=== PATIENT | male | born 1970 | race Caucasian/White ===

== ENCOUNTER 2020-09-25 07:26 | Day surgery (SDC) | payer OTHER, SELFPAY ==
[2020-09-20 12:18] VITALS: BMI 28.7
[2020-09-25 08:34] VITALS: BP 149/96; PULSE 72; RESP 16; TEMP 36.4; O2SAT 96
--- NOTE | 2020-09-25 08:38 | P.CONAN_ITS ---
[facility] Past Medical History Medical History Depression Social History Social History Advance Directives: No Advance Directives Information Provided: No Advance Directives on File: No Meds Allergies Allergy/AdvReac Type Severity Reaction Status Date / Time No Known Allergies Allergy Verified 09/25/20 07:25 Home Medications Medication Instructions Recorded Confirmed Type paroxetine HCl 1 tab PO DAILY 09/20/20 09/20/20 History Exam Exam Date and Time: September 25, 2020 0838 Height,Weight and Vital Signs: Height 5 ft 10 in Weight 90.718 kg Airway Mallampati Class: II TM Dist: >3cm Neck ROM: Full Loose/Missing/Broken Teeth: No Heart: rrr+[id number] Lungs: cta b/l Assessment and Plan Assessment Anesthesia Assessment: Anesthesia Plan Discussed and Chart Reviewed Final Anesthetic Review NPO: Yes ASA Class: II Final Preanesthetic Review: No Changes in Pt Med Stat, Meds/Allgs Chart Reviewed, Consent Obtained/Reviewed and Anes Risks/Benef Reviewed Patient Risk: Low Procedure Risk: Low Assessment/Block/Sedation in SS: Assess/Block/Sedation-SS Anesthetic Plan Anesthetic Plan: MAC: Disposition: Standard PACU
[2020-09-25] MEDS: Lactated Ringers 1,000 ML 50 ML IVCONT (08:42)
[2020-09-25 09:27] VITALS: BP 148/103; PULSE 79; RESP 12; TEMP 36.7; O2SAT 97
--- NOTE | 2020-09-25 09:31 | MHC.SHP ---
Pre-Procedural Eval Section A The patient is an INPATIENT: No Changes since office visit: No Cold of Flu in the past 2 weeks, No New Medical Problems, No Changes in Medication and No Patient answered all questions The History & Physical has been completed within 30 days and I have reviewed it.: Yes Section B Chief Complaint: Screening Allergies: Allergies Allergy/AdvReac Type Severity Reaction Status Date / Time No Known Allergies Allergy Verified 09/25/20 07:25 Plan Patient has been examined and remains a candidate for the planned procedure
--- NOTE | 2020-09-25 09:36 | PM.OP ---
Brief Operative Note Date of Service: 09/25/20 Pre-op diagnosis: screening Post-op diagnosis: other (colon polyps) Procedure: colonoscopy Surgeon: Humberto Boggs Anesthesia: MAC Estimated blood loss (mL): 0 Pathology: other (polyps 78,70 x2,60,45 cm) Condition: stable Disposition: PACU
--- NOTE | 2020-09-25 09:39 | HO.POSTANES ---
Post Anesthesia Evaluation Post Anesthesia Evaluation Vital Signs: Vital Signs Temp Pulse Resp BP Pulse Ox 09/25/20 09:27 98.0 F 79 12 148/103 H 97 09/25/20 08:34 97.6 F 72 16 149/96 H 96 Anesthesia: Monitored Mental Status: Awake Pain Control: Satisfactory Nausea/Vomiting: None Hydration: Adequate Anesthesia-Related Issues: No Anes. Related Issues
[2020-09-25 09:42] VITALS: BP 148/103; PULSE 79; RESP 16; TEMP 36.7; O2SAT 97
--- NOTE | 2020-09-25 09:50 | OP_ITS ---
SURGEON: Humberto Boggs MD INDICATIONS: Colon cancer screening. PREOPERATIVE DIAGNOSIS: POSTOPERATIVE DIAGNOSIS: PROCEDURE PERFORMED: Colonoscopy to the terminal ileum with snare polypectomy. ESTIMATED BLOOD LOSS: COMPLICATIONS: ANESTHESIA: ASSISTANTS: SPECIMENS: MEDICATIONS: Monitored anesthesia care. DESCRIPTION OF PROCEDURE: History and physical performed. The risks and benefits of the procedure were explained to the patient. Informed consent was obtained. The patient was placed in the left lateral decubitus position. A digital rectal exam was performed and was found to be normal. The Olympus pediatric video colonoscope was introduced into the rectum and advanced to the cecum without difficulty. The cecum was identified by transillumination, palpation, and identification of ileocecal valve. Examination was performed and the scope was removed. He tolerated the procedure well and was taken to recovery area in stable condition. FINDINGS: The terminal ileum was normal. Multiple colonic polyps were present and removed with a snare. At 85 cm, was a 10 mm polyp. At 70 cm, were two less than 10 mm polyps. At 60 cm, was a single polyp measuring less than 10 mm and at 45 cm, was another polyp measuring less than 10 mm. All polyps were snared and recovered via suction except the first polyp, which required removal and reinsertion of the colonoscope. Retroflexed examination showed small internal hemorrhoids. The quality of the prep was good. IMPRESSION: Colon polyp. RECOMMENDATION: Follow up the biopsy results. MD ALLIE Pascual/MARCEL / [id number] cc: Dr. Dawson [facility] HOSPITALMohini
--- NOTE | 2020-10-02 15:32 | OP_ITS ---
SURGEON: Humberto Boggs MD INDICATIONS: Colon cancer screening. PREOPERATIVE DIAGNOSIS: POSTOPERATIVE DIAGNOSIS: PROCEDURE PERFORMED: Colonoscopy to the terminal ileum. ESTIMATED BLOOD LOSS: COMPLICATIONS: ANESTHESIA: ASSISTANTS: SPECIMENS: MEDICATIONS: Monitored anesthesia care. DESCRIPTION OF PROCEDURE: History and physical performed. The risks and benefits of the procedure were explained to the patient. Informed consent was obtained. The patient was placed in the left lateral decubitus position. A digital rectal exam was performed and was found to be normal. The Olympus pediatric video colonoscope was introduced into the rectum and advanced to the cecum without difficulty. The cecum was identified by transillumination, palpation, and identification of ileocecal valve. Examination was performed and the scope was removed. He tolerated the procedure well and was taken to recovery area in stable condition. FINDINGS: The terminal ileum was examined and appeared normal. The visualized colonic mucosa was within normal limits without evidence of masses or ulcers. The quality of the prep was good. Multiple colonic polyps were present. These were removed with a snare. The largest was located at 85 cm and measured approximately 10 mm. Other polyps under 10 mm were located at 70 cm x2, 60 x1, and 45 cm x1. Retroflexed examination was normal. IMPRESSION: Colon polyps. RECOMMENDATION: Follow up the biopsy results. MD ALLIE Pascual/MARCEL / [id number]
== END 2020-09-25 10:24 | disposition home or self-care (01) ==
PROVIDERS: PCP Internal Medicine; Visit Provider Internal Medicine Gastroenterology
PROC: 0DJD8ZZ Inspection of Lower Intestinal Tract, Via Natural or Artificial Opening Endoscopic (ICD-10-PCS; CPT 45378; principal; 2020-09-25 08:50)
DX: Z12.11 Encounter for screening for malignant neoplasm of colon (principal); K64.8 Other hemorrhoids; D12.3 Benign neoplasm of transverse colon; D12.4 Benign neoplasm of descending colon; D12.5 Benign neoplasm of sigmoid colon; F32.9 Major depressive disorder, single episode, unspecified; Z79.899 Other long term (current) drug therapy
CPT/HCPCS: 45385; 88305

== ENCOUNTER 2020-11-06 08:40 | Outpatient (REF) | payer SELFPAY ==
[2020-11-06 11:01] LABS: SARS COV2 IgG Positive (Negative)
== END 2020-11-06 08:41 | disposition home or self-care (01) ==
LOC: HO.LNC 08:40
PROVIDERS: Visit Provider Pathology Anatomic Pathology & Clinical Pathology
DX: Z00.00 Encounter for general adult medical examination without abnormal findings (principal); Z20.828 Contact with and (suspected) exposure to other viral communicable diseases
CPT/HCPCS: 86769

== ENCOUNTER 2021-07-18 07:17 | Outpatient (REF) | payer OTHER, SELFPAY ==
[2021-07-18 07:37] LABS: MANUAL DIFF FLAG NO
[2021-07-18 07:39] LABS: Basophils Percent Auto 1.1 % (0-2); Eosinophils Absolute Auto 0.2 X10*3/uL (0.0-0.4); Eosinophils Percent Auto 5.8 % (0-4); Hematocrit 43.4 % (42-52); Hemoglobin 14.9 g/dl (14.0-18.0); Imm Gran Abs Auto 0.04 X10*3/uL (0.00-0.03); Imm Gran Pct Auto 1.1 % (0.0-0.4); Lymphocytes Absolute Auto 1.3 X10*3/uL (1.2-4.9); Lymphocytes Percent Auto 34.2 % (20-40); Mean Corpuscular HGB Conc 34.3 g/dl (31.0-36.0); Mean Corpuscular Volume 81.6 fL (80-98); Monocytes Absolute Auto 0.4 X10*3/uL (0.1-1.2); Monocytes Percent Auto 10.1 % (2-11); Neutrophils Absolute Auto 1.8 X10*3/uL (2.0-8.3); Neutrophils Percent Auto 47.7 % (45-73); Platelet Count 210 X10*3/uL (160-400); Red Blood Count 5.32 X10*6/uL (4.60-5.80); Red Cell Distribution Width 12.9 % (11.0-16.0); White Blood Count 3.8 X10*3/uL (4.8-10.8)
[2021-07-18 08:07] LABS: Alanine Aminotransferase 24 U/L (0-40); Albumin Level 4.3 g/dL (3.5-5.0); Alkaline Phosphatase 46 U/L (39-117); Anion Gap 11 (12-20); Aspartate Amino Transferase 21 U/L (5-37); Bilirubin Total 0.5 mg/dL (0.0-1.0); Blood Urea Nitrogen 13 mg/dL (9-16); Calcium 9.2 mg/dL (8.4-10.2); Carbon Dioxide 25 mmol/L (22-29); Chloride 108 mmol/L (96-108); Cholesterol 229 mg/dL; Estimated Glomerular Filt Rate > 60; Glucose Fasting 113 mg/dL (60-99); HDL Cholesterol 46 mg/dL; LDL Cholesterol Calculated 159 mg/dl; Potassium 4.5 mmol/L (3.3-5.1); Sodium 139 mmol/L (135-145); Total Protein 6.7 g/dL (6.5-8.0); Triglycerides 123 mg/dL
[2021-07-18 08:28] LABS: Thyroid Stimulating Hormone 2.03 uIU/mL (0.32-4.0)
== END 2021-07-18 07:18 | disposition home or self-care (01) ==
LOC: HO.LAB 07:17
PROVIDERS: PCP Internal Medicine; Visit Provider Internal Medicine
DX: Z00.00 Encounter for general adult medical examination without abnormal findings (principal); E11.9 Type 2 diabetes mellitus without complications; E03.9 Hypothyroidism, unspecified
CPT/HCPCS: 36415; 80053; 80061; 84443; 85025

== ENCOUNTER 2022-07-09 09:31 | Outpatient (REF) | payer OTHER, SELFPAY ==
[2022-07-09 09:41] LABS: MANUAL DIFF FLAG NO
[2022-07-09 10:03] LABS: Basophils Absolute Auto 0.1 X10*3/uL (0.0-0.2); Basophils Percent Auto 1.4 % (0-2); Eosinophils Absolute Auto 0.2 X10*3/uL (0.0-0.4); Eosinophils Percent Auto 4.4 % (0-4); Hematocrit 43.9 % (42.0-52.0); Hemoglobin 15.2 g/dl (14.0-18.0); Imm Gran Abs Auto 0.04 X10*3/uL (0.00-0.03); Imm Gran Pct Auto 0.9 % (0.0-0.4); Lymphocytes Absolute Auto 1.5 X10*3/uL (1.2-4.9); Lymphocytes Percent Auto 33.6 % (20-40); Mean Corpuscular HGB Conc 34.6 g/dl (31.0-36.0); Mean Corpuscular Volume 80.8 fL (80.0-98.0); Mean Platelet Volume 9.1 fL (9.4-12.4); Monocytes Absolute Auto 0.4 X10*3/uL (0.1-1.2); Monocytes Percent Auto 9.9 % (2-11); Neutrophils Absolute Auto 2.2 x10*3/uL (2.0-8.3); Neutrophils Percent Auto 49.8 % (45-73); Platelet Count 223 X10*3/uL (160-400); Red Blood Count 5.43 X10*6/uL (4.60-5.80); Red Cell Distribution Width 12.9 % (11.0-16.0); White Blood Count 4.3 X10*3/uL (4.8-10.8)
[2022-07-09 10:32] LABS: Alanine Aminotransferase 39 U/L (0-40); Albumin Level 4.4 g/dL (3.5-5.0); Alkaline Phosphatase 51 U/L (39-117); Anion Gap 13 (12-20); Aspartate Amino Transferase 22 U/L (5-37); Bilirubin Total 0.6 mg/dL (0.0-1.0); Blood Urea Nitrogen 18 mg/dL (9-16); Carbon Dioxide 26 mmol/L (22-29); Chloride 107 mmol/L (96-108); Cholesterol 252 mg/dL; Estimated Glomerular Filt Rate 57; Glucose Fasting 109 mg/dL (60-99); HDL Cholesterol 45 mg/dL; LDL Cholesterol Calculated 175 mg/dl; Potassium 4.7 mmol/L (3.3-5.1); Sodium 141 mmol/L (135-145); Total Protein 7.1 g/dL (6.5-8.0); Triglycerides 162 mg/dL
[2022-07-09 10:56] LABS: Thyroid Stimulating Hormone 1.44 uIU/mL (0.32-4.0)
== END 2022-07-09 09:32 | disposition home or self-care (01) ==
LOC: HO.LAB 09:31
PROVIDERS: PCP Internal Medicine; Visit Provider Internal Medicine
DX: Z13.0 Encounter for screening for diseases of the blood and blood-forming organs and certain disorders involving the immune mechanism (principal); E03.9 Hypothyroidism, unspecified; E78.5 Hyperlipidemia, unspecified; I10 Essential (primary) hypertension
CPT/HCPCS: 36415; 80053; 80061; 84443; 85025

== ENCOUNTER 2023-07-22 12:47 | Outpatient (AMB) | payer OTHER, SELFPAY ==
[2023-07-22 12:51] VITALS: BP 136/60; PULSE 91; O2SAT 96; BMI 29.0
--- NOTE | 2023-07-22 12:51 | MHC.PC.OV ---
Vital Signs 07/22/23 12:51 Height 5 ft 11 in Weight 208 lb BMI 29.0 BP 136/60 Blood Pressure Location Lt brachial Position Sitting Pulse 91 Pulse Source Pulse Oximeter Pulse Oximetry (%) 96 Oxygen Delivery Method Room Air Intake Visit Reasons: Annual Exam Puncher And Fastener Required: No Investor Relations Specialist: Not Required per policy Accompanied by: Self / Same As Patient Allergies No Known Allergies Allergy (Verified 07/22/23 12:51) Medication List - Last Reconciled 07/22/23 by Shubham Dawson MD paroxetine HCl 20 mg PO DAILY Tobacco use date assessed: 07/09/22 Dental Screening Dental Screen Date: 07/22/23 Did you have a dental visit in the last 12 months?: No Did you have a dental problem in the last 6 months where you did not have access to dental care?: No Was dental information given to patient?: Patient has dentist HPI Annual Exam HPI Details panic disorder [facility] Medical History Panic disorder Depression Surgical History History of colonoscopy Family History Mother No problems noted. Father No problems noted. Social History Housing: House Patient Tobacco Use Status: Never used Tobacco e-Cigarette/Vaping Use: Never Used Second Hand Smoke Exposure: No service: No Current occupational status: employed Cognitive needs: No Hearing needs: No Vision needs: No Questionnaire PHQ-9 Over the last 2 weeks, how often have you been bothered by any of the following problems? 1. Little interest or pleasure in doing things: not at all 2. Feeling down, depressed, or hopeless: not at all 3. Trouble falling or staying asleep, or sleeping too much: not at all 4. Feeling tired or having little energy: not at all 5. Poor appetite or overeating: not at all 6. Feeling bad about yourself - or that you are a failure or have let yourself or your family down: not at all 7. Trouble concentrating on things, such as reading the newspaper or watching television: not at all 8. Moving or speaking so slowly that other people could have noticed. Or the opposite - being so fidgety or restless that you have been moving around a lot more than usual: not at all 9. Thoughts that you would be better off or of hurting yourself in some way: not at all Total score: 0 Depression Screening Interpretation: Negative 28819 - PHQ-9 Billing: Yes Source: Developed by Drs. Sebastián Drake, Kimberlee Denton, Placido Moses and colleagues, with an educational christopher from [employer]. Thrive Questionnaire Date Thrive assessed: 07/22/23 I am a: Patient What is your living situation today?: I have a steady place to live Within the past 12 months, did the food you bought not last and you didn't have the money to get more?: Never true Within the past 12 months, did you worry whether your food would run out before you got money to buy more?: Never true Do you have trouble paying for medicines?: No Do you have trouble getting transportation to medical appointments?: No Do you have trouble paying your heating and electricity bill?: No Do you have trouble taking care of your child, family member or friend?: No Do you have trouble with day-to-day activities such as bathing, preparing meals, shopping, managing finances, etc.?: No Are you currently unemployed and looking for a job?: No Are you interested in more education?: No Please select the resources that you would like help with: None AUDIT C Alcohol Use Questionnaire (AUDIT-C) 1. How often do you have a drink containing alcohol?: 2-3 times a week 2. How many drinks containing alcohol do you have on a typical day when you are drinking?: 3 or 4 3. How often do you have six or more drinks on one occasion?: Never Total Score: 4 Score Reviewed/Action Taken: Yes ANNABELLE-7 AMB Questionnaire ANNABELLE-7 Date ANNABELLE - 7 assessed: 07/22/23 Feeling nervous, anxious, or on edge: 0 = Not at all Not being able to stop or control worryin = Not at all Worrying too much about different things: 0 = Not at all Trouble relaxin = Not at all Being so restless that it is hard to sit still: 0 = Not at all Becoming easily annoyed or irritable: 0 = Not at all Feeling afraid as if something awful might happen: 0 = Not at all Total ANNABELLE-7 score (0-4 normal; 5-9 mild; 10-14 moderate; 15-21 severe): 0 Source: Developed by Drs. Sebastián Drake, Kimberlee Denton, Placido Moses and colleagues, with an educational christopher from [employer]. ANNABELLE-7 Assessment Billing ANNABELLE-7 Assessment Tool: ANNABELLE-7 Assessment 44308 Review of Systems Const Denies chills, Denies fatigue, Denies headache(s) and Denies weight loss Eyes Denies change in vision, Denies diplopia and Denies eye pain ENT Denies vertigo, Denies dizziness, Denies headache(s) and Denies nasal discharge Card Denies chest pain, Denies rapid heart rate and Denies dyspnea on exertion Resp Denies chest congestion, Denies cough, Denies pain with cough and Denies dyspnea on exertion GI Denies abdominal pain, Denies hematochezia and Denies change in bowel habits Musc Denies myalgias, Denies arthralgias and Denies joint swelling Skin/Breast Denies lesions and Denies unusual bruising Neuro Denies vertigo, Denies dizziness, Denies headache(s) and Denies focal weakness Endo Denies fatigue Physical exam (Primary Care) Vital Signs: Last Vital Signs Pulse 91 07/22/23 12:51 BP 136/60 07/22/23 12:51 Pulse Ox 96 07/22/23 12:51 Oxygen Delivery Method Room Air 07/22/23 12:51 BMI result Body Mass Index 29.0 Tobacco/Smoking Status: Tobacco use Status Tobacco use date assessed 07/09/22 07/22/23 12:56 Patient Tobacco Use Status Never used Tobacco 07/22/23 12:56 e-Cigarette/Vaping Use Never Used 07/22/23 12:56 PHQ-9: PHQ-9 Score PHQ-9: Total score 0 07/22/23 12:56 Depression Screening Interpretation: Negative Thrive Assessment: Date of Thrive Assessment Date Thrive assessed 07/22/23 07/22/23 12:56 Const General: cooperative, healthy appearing and no acute distress Orientation/consciousness: oriented to person, oriented to place and oriented to time HENMT Head: Yes normal to inspection, Yes normocephalic and Yes atraumatic Mouth: Normal oral and palatal mucosa present and tongue normal Throat: Yes posterior oropharynx normal and Yes uvula midline Eyes General: appearance normal, both eyes and all related structures Neck Neck: Yes normal visual inspection, Yes full ROM and Yes no lymphadenopathy Thyroid: Thyroid normal Carotids: normal carotid upstroke Chest Chest palpation & inspection: normal inspection of the chest Resp Effort & Inspection: normal respiratory effort and able to speak in complete sentences Auscultation: clear to auscultation bilaterally Cardio Jugular venous distension: no JVD Palpation: normal PMI Rate: regular rate Rhythm: regular rhythm Heart sounds: S1 normal heart sound present and S2 normal heart sound present GI Inspection: Yes normal to inspection Palpation (GI): Soft to palpation and No hepatosplenomegaly present Auscultation: normal bowel sounds General: Yes no CVA tenderness Back/Spine/Pelvis Back: no CVA tenderness Skin General skin exam: no rashes or lesions noted Neuro General: oriented to person, oriented to place and oriented to time Extrem General: Yes normal to inspection and Yes full ROM Assessment and Plan Assessment & Plan (1) Physical exam: Code(s): Z00.00 - Encounter for general adult medical examination without abnormal findings (2) Panic disorder: Code(s): F41.0 - Panic disorder [episodic paroxysmal anxiety] Orders: Orders Lipid Panel Today E78.5 - Hyperlipidemia, unspecified Complete Blood Count Auto Diff Today D64.9 - Anemia, unspecified Thyroid Stimulating Hormone Today E03.9 - Hypothyroidism, unspecified Comprehensive Raven. Panel Fast Today N28.9 - Disorder of kidney and ureter, unspecified Referrals Dermatology Referral R22.9 - Localized swelling, mass and lump, unspecified Coding Level of Care Code Est Pt Prev Care 40-64y(82069) Diagnoses Physical exam Z00.00 Panic disorder F41.0 Additional Codes ANNABELLE-7 Assessment Billing - ANNABELLE-7 Assessment Tool: ANNABELLE-7 Assessment 99932 ([id number])
== END 2023-07-22 13:16 | disposition home or self-care (01) ==
PROVIDERS: PCP Internal Medicine; Visit Provider Internal Medicine
DX: Z00.00 Encounter for general adult medical examination without abnormal findings (principal); F41.0 Panic disorder [episodic paroxysmal anxiety]
CPT/HCPCS: 99396

== ENCOUNTER 2023-07-23 06:54 | Outpatient (REF) | payer OTHER, SELFPAY ==
[2023-07-23 07:08] LABS: MANUAL DIFF FLAG NO
[2023-07-23 07:44] LABS: Basophils Absolute Auto 0.1 X10*3/uL (0.0-0.2); Basophils Percent Auto 1.3 % (0-2); Eosinophils Absolute Auto 0.3 X10*3/uL (0.0-0.4); Eosinophils Percent Auto 5.9 % (0-4); Hemoglobin 14.9 g/dl (14.0-18.0); Imm Gran Abs Auto 0.07 X10*3/uL (0.00-0.03); Imm Gran Pct Auto 1.5 % (0.0-0.4); Lymphocytes Absolute Auto 1.4 X10*3/uL (1.2-4.9); Lymphocytes Percent Auto 29.3 % (20-40); Mean Corpuscular HGB Conc 33.9 g/dl (31.0-36.0); Mean Corpuscular Hemoglobin 28.3 pg (27.0-33.0); Mean Corpuscular Volume 83.7 fL (80.0-98.0); Mean Platelet Volume 9.5 fL (9.4-12.4); Monocytes Absolute Auto 0.5 X10*3/uL (0.1-1.2); Monocytes Percent Auto 10.1 % (2-11); Neutrophils Absolute Auto 2.5 x10*3/uL (2.0-8.3); Neutrophils Percent Auto 51.9 % (45-73); Platelet Count 216 X10*3/uL (160-400); Red Blood Count 5.26 X10*6/uL (4.60-5.80); White Blood Count 4.8 X10*3/uL (4.8-10.8)
[2023-07-23 08:08] LABS: Alanine Aminotransferase 45 U/L (0-40); Albumin Level 4.4 g/dL (3.5-5.0); Alkaline Phosphatase 44 U/L (39-117); Anion Gap 12 (12-20); Aspartate Amino Transferase 29 U/L (5-37); Bilirubin Total 0.7 mg/dL (0.0-1.0); Blood Urea Nitrogen 17 mg/dL (9-16); Calcium 9.1 mg/dL (8.4-10.2); Carbon Dioxide 24 mmol/L (22-29); Chloride 110 mmol/L (96-108); Cholesterol 236 mg/dL (<200); Estimated Glomerular Filt Rate > 60; Glucose Fasting 115 mg/dL (60-99); HDL Cholesterol 39 mg/dL (>40); LDL Cholesterol Calculated 159 mg/dL (<100); Potassium 3.9 mmol/L (3.3-5.1); Sodium 142 mmol/L (135-145); Total Protein 7.2 g/dL (6.5-8.0); Triglycerides 193 mg/dL (<150)
[2023-07-23 08:23] LABS: Thyroid Stimulating Hormone 1.56 uIU/mL (0.32-4.0)
== END 2023-07-23 06:55 | disposition home or self-care (01) ==
LOC: HO.LAB 06:54
PROVIDERS: PCP Internal Medicine; Visit Provider Internal Medicine
DX: D64.9 Anemia, unspecified (principal); E78.5 Hyperlipidemia, unspecified; E03.9 Hypothyroidism, unspecified; N28.9 Disorder of kidney and ureter, unspecified
CPT/HCPCS: 36415; 80053; 80061; 84443; 85025

== ENCOUNTER 2024-01-27 11:43 | Day surgery (SDC) | payer OTHER, SELFPAY ==
[2024-01-25 15:04] VITALS: BMI 30.3
--- NOTE | 2024-01-27 12:18 | HO.ANESPROP2 ---
[facility] Active Problems Active Problems: All Active Problems (Updated 07/09/22 @ 09:26 by Shubham Dawson MD) Physical exam (Acute) Panic disorder (Acute) Past Medical History Medical History Panic disorder Depression Family History Family History Mother No problems noted. Father No problems noted. Family history of problems with anesthesia: No Surgical History Surgical History (Updated 01/25/24 @ 15:04 by Brenda Romero RN) History of colonoscopy History of Problems with Anesthesia: No Social History Social History (Updated 01/25/24 @ 15:04 by Brenda Romero RN) Housing: House Patient Tobacco Use Status: Never used Tobacco e-Cigarette/Vaping Use: Never Used Second Hand Smoke Exposure: No Advance Directives: No Advance Directives Information Provided: Yes service: No Current occupational status: employed Cognitive needs: No Hearing needs: No Vision needs: No Meds Allergies Allergy/AdvReac Type Severity Reaction Status Date / Time No Known Allergies Allergy Verified 07/22/23 12:51 Exam Height,Weight and Vital Signs: Height 5 ft 10 in Weight 95.708 kg Airway Mallampati Class: II TM Dist: >3cm Neck ROM: Full Assessment and Plan Assessment Anesthesia Assessment: Anesthesia Plan Discussed and Chart Reviewed Final Anesthetic Review Family History of Problems with Anesthesia: No History of Problems with Anesthesia: No NPO: Yes ASA Class: II Final Preanesthetic Review: No Changes in Pt Med Stat, Meds/Allgs Chart Reviewed, Consent Obtained/Reviewed and Anes Risks/Benef Reviewed Patient Risk: Low Procedure Risk: Low Anesthetic Plan Anesthetic Plan: TIVA Disposition: Standard PACU
[2024-01-27 12:22] VITALS: BP 159/113; PULSE 74; RESP 18; TEMP 36.1; O2SAT 97
--- NOTE | 2024-01-27 12:56 | P.HPSUR_ITS ---
Pre-Procedural Eval Section A - 24 Hr Update-Section A only Date of Service: 01/27/24 Section B - Complete if H&P > 30 days Chief Complaint: Encounter for screening for malignant neoplasm of Details of Present Illness: see H&P no changes Relevant Family History (Specify if Yes): No Relevant Social History: None Present Medications: see Short Stay Collaborative assessment Medical History: No relevant PMH History of Previous Operations: No relevant previous surgery Allergies: Allergies Allergy/AdvReac Type Severity Reaction Status Date / Time No Known Allergies Allergy Verified 07/22/23 12:51 Review of Systems Sugical H&P ROS: Negative: Constitution, Cardiovascular, Respiratory, Neurological, Psychiatric, Hem-Onc, Allergic/Immunologic, Gastrointestinal, Genitourinary, Musculoskeletal, Integumentary, Endocrine and Eyes/Ears/No se/Throat Exam Surgical H&P Exam: Normal: HEENT, Normal: Heart, Normal: Lungs, Normal: Extremities, Normal: Abdomen, Normal: Skin and Normal: Neurological Plan Diagnosis/Plan: Unchanged I have reviewed the history and physical and performed a pertinent physical examination on my patient. No changes have occurred unless specified. Time Spent With Patient Time: Total time managing care of this patient today ____ minutes.
[2024-01-27 13:41] VITALS: BP 110/76; PULSE 93; RESP 18; TEMP 37.2; O2SAT 95
[2024-01-27 13:56] VITALS: BP 115/80; PULSE 81; RESP 17; TEMP 37.1; O2SAT 99
--- NOTE | 2024-01-27 14:29 | OP_ITS ---
DATE OF SERVICE: 01/27/2024 SURGEON: Humberto Boggs MD INDICATIONS: Colon cancer screening and prior history of adenomatous colon polyps. PREOPERATIVE DIAGNOSIS: POSTOPERATIVE DIAGNOSIS: PROCEDURE PERFORMED: Colonoscopy to the terminal ileum with snare polypectomy and biopsy. ESTIMATED BLOOD LOSS: COMPLICATIONS: ANESTHESIA: Monitored anesthesia care. ASSISTANTS: SPECIMENS: DESCRIPTION OF PROCEDURE: A history and physical was performed. The risks and benefits of the procedure were explained to the patient and informed consent was obtained. The patient was placed in the left lateral decubitus position. A digital rectal exam was performed and was found to be normal. The Olympus pediatric video colonoscope was introduced into the rectum and advanced to the cecum. The cecum was identified by transillumination, palpation, and identification of ileocecal valve. Examination was performed. The scope was removed. He tolerated the procedure well and was returned to recovery area in stable condition. FINDINGS: The terminal ileum was examined and appeared normal. The visualized colonic mucosa was normal. The quality of the prep was good. Three polyps were identified. 2 were removed with a snare measuring less than 10 mm. These were located at 80 and 60 cm. A 3rd polyp at 25 cm measuring less than 5 mm was removed with the biopsy forceps. No other polyps were identified. Retroflexed examination showed some small internal hemorrhoids. IMPRESSION: Colon polyps. RECOMMENDATION: Follow up the biopsy results. MD ALLIE Pascual/MARCEL / [id number] MTDD
== END 2024-01-27 14:25 | disposition home or self-care (01) ==
PROVIDERS: PCP Internal Medicine; Visit Provider Internal Medicine Gastroenterology
PROC: 0DJD8ZZ Inspection of Lower Intestinal Tract, Via Natural or Artificial Opening Endoscopic (ICD-10-PCS; CPT 45378; principal; 2024-01-27 13:00)
DX: Z12.11 Encounter for screening for malignant neoplasm of colon (principal); Z86.010 Personal history of colon polyps; D12.4 Benign neoplasm of descending colon; K63.5 Polyp of colon; K64.8 Other hemorrhoids; F32.A Depression, unspecified; Z79.899 Other long term (current) drug therapy
CPT/HCPCS: 45385; 45380; 88305; J2704

== ENCOUNTER 2024-07-22 09:52 | Outpatient (AMB) | payer OTHER, SELFPAY ==
[2024-07-22 09:55] VITALS: BP 142/82; PULSE 72; O2SAT 96; BMI 30.1
--- NOTE | 2024-07-22 09:55 | MHC.PC.OV ---
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 Accompanied by: Self / Same As Patient Allergies No Known Allergies Allergy (Verified 07/22/24 09:59) Medication List - Last Reconciled 07/22/24 by Shubham Dawson MD cephalexin 250 mg PO Q6H paroxetine HCl 20 mg PO DAILY Tobacco use date assessed: 07/22/24 Dental Screening Dental Screen Date: 07/22/24 Did you have a dental visit in the last 12 months?: Yes Did you have a dental problem in the last 6 months where you did not have access to dental care?: No Was dental information given to patient?: Patient has dentist HPI pe HPI Details panic disorder on rx; doing well PFSH Medical History Panic disorder Depression Surgical History (Updated 01/25/24 @ 15:04 by Brenda Romero RN) History of colonoscopy Family History Mother No problems noted. Father No problems noted. Social History (Updated 01/25/24 @ 15:04 by Brenda Romero RN) Housing: House Patient Tobacco Use Status: Never used Tobacco Tobacco use type: Cigarette e-Cigarette/Vaping Use: Never Used Second Hand Smoke Exposure: No service: No Current occupational status: employed Cognitive needs: No Hearing needs: No Vision needs: No Questionnaire PHQ-9 Over the last 2 weeks, how often have you been bothered by any of the following problems? 1. Little interest or pleasure in doing things: not at all 2. Feeling down, depressed, or hopeless: not at all 3. Trouble falling or staying asleep, or sleeping too much: not at all 4. Feeling tired or having little energy: not at all 5. Poor appetite or overeating: not at all 6. Feeling bad about yourself - or that you are a failure or have let yourself or your family down: not at all 7. Trouble concentrating on things, such as reading the newspaper or watching television: not at all 8. Moving or speaking so slowly that other people could have noticed. Or the opposite - being so fidgety or restless that you have been moving around a lot more than usual: not at all 9. Thoughts that you would be better off or of hurting yourself in some way: not at all Total score: 0 Depression Screening Interpretation: Negative Depression Screening Done: Yes 09342 - PHQ-9 Billing: Yes Source: Developed by Drs. Sebastián Drake, Kimberlee Denton, Placido Moses and colleagues, with an educational christopher from [employer]. Thrive Questionnaire Date Thrive assessed: 07/15/24 I am a: Patient What is your living situation today?: I have a steady place to live Within the past 12 months, did the food you bought not last and you didn't have the money to get more?: I choose not to answer this question Within the past 12 months, did you worry whether your food would run out before you got money to buy more?: I choose not to answer this question Do you have trouble paying for medicines?: No Do you have trouble getting transportation to medical appointments?: No Do you have trouble paying your heating and electricity bill?: No Do you have trouble taking care of your child, family member or friend?: No Do you have trouble with day-to-day activities such as bathing, preparing meals, shopping, managing finances, etc.?: No Are you currently unemployed and looking for a job?: No Are you interested in more education?: No Please select the resources that you would like help with: None Currently or been in a relationship where the following occur: No concerns reported THRIVE Score: 0 AUDIT C Alcohol Use Questionnaire (AUDIT-C) 1. How often do you have a drink containing alcohol?: 2-3 times a week 2. How many drinks containing alcohol do you have on a typical day when you are drinking?: 3 or 4 3. How often do you have six or more drinks on one occasion?: Less than monthly Total Score: 5 ANNABELLE-7 AMB Questionnaire ANNABELLE-7 Date ANNABELLE - 7 assessed: 07/22/24 Feeling nervous, anxious, or on edge: 1 = Several days Not being able to stop or control worryin = Several days Worrying too much about different things: 1 = Several days Trouble relaxin = Not at all Being so restless that it is hard to sit still: 0 = Not at all Becoming easily annoyed or irritable: 1 = Several days Feeling afraid as if something awful might happen: 0 = Not at all Total ANNABELLE-7 score (0-4 normal; 5-9 mild; 10-14 moderate; 15-21 severe): 4 Source: Developed by Drs. Sebastián Drake, Kimberlee Denton, Placido Moses and colleagues, with an educational christopher from [employer]. Review of Systems Const Denies chills, Denies fatigue, Denies headache(s) and Denies weight loss Eyes Denies change in vision, Denies diplopia and Denies eye pain ENT Denies vertigo, Denies dizziness, Denies headache(s) and Denies nasal discharge Card Denies chest pain, Denies rapid heart rate and Denies dyspnea on exertion Resp Denies chest congestion, Denies cough, Denies pain with cough and Denies dyspnea on exertion GI Denies abdominal pain, Denies hematochezia and Denies change in bowel habits Musc Denies myalgias, Denies arthralgias and Denies joint swelling Skin/Breast Denies lesions and Denies unusual bruising Neuro Denies vertigo, Denies dizziness, Denies headache(s) and Denies focal weakness Endo Denies fatigue Physical exam (Primary Care) Vital Signs: Last Vital Signs Pulse 72 07/22/24 09:55 BP 142/82 H 07/22/24 09:55 Pulse Ox 96 07/22/24 09:55 Oxygen Delivery Method Room Air 07/22/24 09:55 BMI result Body Mass Index 30.1 Tobacco/Smoking Status: Tobacco use Status Tobacco use date assessed 07/22/24 07/22/24 09:58 Patient Tobacco Use Status Never used Tobacco 07/22/24 09:58 Tobacco use type Cigarette 07/22/24 09:58 e-Cigarette/Vaping Use Never Used 07/22/24 09:58 PHQ-9: PHQ-9 Score PHQ-9: Total score 0 07/22/24 10:00 Depression Screening Interpretation: Negative Thrive Assessment: Date of Thrive Assessment Date Thrive assessed 07/15/24 07/22/24 09:58 Currently or been in a relationship where the following occur: No concerns reported Const General: cooperative, healthy appearing and no acute distress Orientation/consciousness: oriented to person, oriented to place and oriented to time HENMT Head: Yes normal to inspection, Yes normocephalic and Yes atraumatic Mouth: Normal oral and palatal mucosa present and tongue normal Throat: Yes posterior oropharynx normal and Yes uvula midline Eyes General: appearance normal, both eyes and all related structures Neck Neck: Yes normal visual inspection, Yes full ROM and Yes no lymphadenopathy Thyroid: Thyroid normal Carotids: normal carotid upstroke Chest Chest palpation & inspection: normal inspection of the chest Resp Effort & Inspection: normal respiratory effort and able to speak in complete sentences Auscultation: clear to auscultation bilaterally Cardio Jugular venous distension: no JVD Palpation: normal PMI Rate: regular rate Rhythm: regular rhythm Heart sounds: S1 normal heart sound present and S2 normal heart sound present GI Inspection: Yes normal to inspection Palpation (GI): Soft to palpation and No hepatosplenomegaly present Auscultation: normal bowel sounds General: Yes no CVA tenderness Back/Spine/Pelvis Back: no CVA tenderness Skin General skin exam: no rashes or lesions noted Neuro General: oriented to person, oriented to place and oriented to time Extrem General: Yes normal to inspection and Yes full ROM Assessment and Plan Assessment & Plan (1) Physical exam: Code(s): Z00.00 - Encounter for general adult medical examination without abnormal findings Plan: stable; do labs (2) Panic disorder: Code(s): F41.0 - Panic disorder [episodic paroxysmal anxiety] Plan: stable; same rx Orders: Orders Complete Blood Count Auto Diff Today Z13.0 - Encounter for screening for diseases of the blood and blood-forming organs and certain disorders involving the immune mechanism Comprehensive [place]. Panel Fast Today Z13.9 - Encounter for screening, unspecified Lipid Panel Today Z13.220 - Encounter for screening for lipoid disorders Prostate Specific Antigen Scr Today Z00.00 - Encounter for general adult medical examination without abnormal findings Thyroid Stimulating Hormone Today Z13.29 - Encounter for screening for other suspected endocrine disorder Medications: New cephalexin 250 mg PO Q6H 20 caps 0RF Coding Level of Care Code Est Pt Prev Care 40-64y(97115) Diagnoses Physical exam Z00.00 Panic disorder F41.0
== END 2024-07-22 10:15 | disposition home or self-care (01) ==
PROVIDERS: PCP Internal Medicine; Visit Provider Internal Medicine
DX: Z00.00 Encounter for general adult medical examination without abnormal findings (principal); F41.0 Panic disorder [episodic paroxysmal anxiety]
CPT/HCPCS: 99396

== ENCOUNTER 2024-07-22 10:19 | Outpatient (REF) | payer OTHER, SELFPAY ==
[2024-07-22 10:35] LABS: MANUAL DIFF FLAG NO
[2024-07-22 11:19] LABS: Basophils Absolute Auto 0.1 X10*3/uL (0.0-0.2); Basophils Percent Auto 1.3 % (0-2); Eosinophils Absolute Auto 0.2 X10*3/uL (0.0-0.4); Eosinophils Percent Auto 5.1 % (0-4); Hematocrit 45.3 % (42.0-52.0); Hemoglobin 15.8 g/dl (14.0-18.0); Imm Gran Abs Auto 0.05 X10*3/uL (0.00-0.03); Imm Gran Pct Auto 1.1 % (0.0-0.4); Lymphocytes Absolute Auto 1.5 X10*3/uL (1.2-4.9); Lymphocytes Percent Auto 32.7 % (20-40); Mean Corpuscular HGB Conc 34.9 g/dl (31.0-36.0); Mean Corpuscular Hemoglobin 28.1 pg (27.0-33.0); Mean Corpuscular Volume 80.6 fL (80.0-98.0); Mean Platelet Volume 9.2 fL (9.4-12.4); Monocytes Absolute Auto 0.4 X10*3/uL (0.1-1.2); Monocytes Percent Auto 9.5 % (2-11); Neutrophils Absolute Auto 2.3 x10*3/uL (2.0-8.3); Neutrophils Percent Auto 50.3 % (45-73); Platelet Count 243 X10*3/uL (160-400); Red Blood Count 5.62 X10*6/uL (4.60-5.80); Red Cell Distribution Width 12.9 % (11.0-16.0); White Blood Count 4.6 X10*3/uL (4.8-10.8)
[2024-07-22 11:47] LABS: Alanine Aminotransferase 41 U/L (0-40); Albumin Level 4.4 g/dL (3.5-5.0); Alkaline Phosphatase 49 U/L (39-117); Anion Gap 12 (12-20); Aspartate Amino Transferase 26 U/L (5-37); Bilirubin Total 0.5 mg/dL (0.0-1.0); Blood Urea Nitrogen 13 mg/dL (9-16); Calcium 9.4 mg/dL (8.4-10.2); Carbon Dioxide 25 mmol/L (22-29); Chloride 107 mmol/L (96-108); Cholesterol 234 mg/dL (<200); Estimated Glomerular Filt Rate 59; Glucose Fasting 108 mg/dL (60-99); HDL Cholesterol 36 mg/dL (>40); LDL Cholesterol Calculated 173 mg/dL (<100); Potassium 4.8 mmol/L (3.3-5.1); Sodium 139 mmol/L (135-145); Total Protein 7.3 g/dL (6.5-8.0); Triglycerides 128 mg/dL (<150)
[2024-07-22 11:53] LABS: Prostate Specific Antigen Scr 1.19 ng/mL (<0.05-4.0)
[2024-07-22 12:05] LABS: Thyroid Stimulating Hormone 1.19 uIU/mL (0.32-4.0)
== END 2024-07-22 10:20 | disposition home or self-care (01) ==
LOC: HO.LAB 10:19
PROVIDERS: PCP Internal Medicine; Visit Provider Internal Medicine
DX: Z00.00 Encounter for general adult medical examination without abnormal findings (principal); Z13.0 Encounter for screening for diseases of the blood and blood-forming organs and certain disorders involving the immune mechanism; Z13.220 Encounter for screening for lipoid disorders; Z13.29 Encounter for screening for other suspected endocrine disorder; Z13.9 Encounter for screening, unspecified; Z12.5 Encounter for screening for malignant neoplasm of prostate
CPT/HCPCS: 36415; 80053; 80061; 84153; 84443; 85025

== ENCOUNTER 2024-07-29 13:31 | Emergency (ER) | payer OTHER, SELFPAY ==
[2024-07-29 13:47] VITALS: BP 173/109; PULSE 64; RESP 16; TEMP 37; O2SAT 98; BMI 29.0
--- NOTE | 2024-07-29 13:48 | ED_ITS ---
HPI - General Adult General Chief complaint: General Medical Stated complaint: High blood pressure Time Seen by Provider: 07/29/24 19:49 Source: patient, RN notes reviewed and old records reviewed Mode of arrival: ambulatory Limitations: no limitations History of Present Illness ED Provider: Madyson LIM narrative: 53-year-old male with no significant past medical history presents for evaluation of elevated blood pressure reading. Patient had a routine physical last Thursday Apparently at that visit his blood pressure was found to be somewhat elevated. His primary doctor called him on Thursday to order a repeat visit today for recheck of his blood pressure The patient's blood pressure was 170/110 and 182/114 at the PCP office today The patient reports that he feels completely fine. Denies any chest pain, headache He denies any nausea vomiting, lightheadedness, visual changes He does not take any medications Related Data Previous Rx's ?Medication ?Instructions ?Recorded paroxetine HCl 20 mg tablet 20 mg PO DAILY #90 tabs 03/29/24 cephalexin 250 mg capsule 250 mg PO Q6H #20 caps 07/22/24 lisinopril 10 mg tablet 10 mg PO DAILY #30 tabs 07/29/24 Allergies Allergy/AdvReac Type Severity Reaction Status Date / Time No Known Allergies Allergy Verified 07/29/24 13:50 Review of Systems 2 Constitutional: Constitutional: Denies body ache(s), Denies chills, Denies fever(s) and Denies headache(s) Eyes: Eyes: Denies blurry vision ENT: Denies vertigo, Denies dizziness and Denies headache(s) Cardiovascular: Cardiovascular: Denies chest pain and Denies dyspnea Respiratory: Respiratory: Denies dyspnea Gastrointestinal: Gastrointestinal: Denies abdominal pain, Denies nausea and Denies vomiting Musculoskeletal: Musculoskeletal: Denies back pain Integumentary/Breasts: Skin/Breast: Denies rash Neurologic: Denies vertigo, Denies dizziness and Denies headache(s) [facility] Past Medical History Medical History (Updated 07/29/24 @ 20:02 by Markus Coughlin) Panic disorder Depression Surgical History (Updated 01/25/24 @ 15:04 by Brenda Romero RN) History of colonoscopy Family History Family History Mother No problems noted. Father No problems noted. Social History Social History (Updated 01/25/24 @ 15:04 by Brenda Romero RN) Housing: House Patient Tobacco Use Status: Never used Tobacco Tobacco use type: Cigarette e-Cigarette/Vaping Use: Never Used Second Hand Smoke Exposure: No Advance Directives: No Advance Directives Information Provided: No service: No Current occupational status: employed Cognitive needs: No Hearing needs: No Vision needs: No Physical Exam ED Vital Signs: Vital Signs - 24 hr 07/29/24 13:47 07/29/24 19:59 Temperature 98.6 F 98.3 F Pulse Rate 64 68 Respiratory Rate 16 16 Blood Pressure 173/109 H 173/115 H Pulse Oximetry 98 95 Oxygen Delivery Method Room Air Room Air BMI result Body Mass Index 29.0 Const General: healthy appearing, comfortable, no acute distress, alert and awake Nutritional Appearance: well nourished Orientation/consciousness: patient oriented x3 HENMT Head: Yes normocephalic and Yes atraumatic Eyes Eyelids: Yes eyelids normal Conjunctivae: conjunctivae normal Sclerae: sclerae normal Corneas: corneas normal Pupils: Equal, round and reactive pupils present EOM: EOMs intact bilaterally Neck Neck: Yes full ROM Resp Effort & Inspection: normal respiratory effort, able to speak in complete sentences, no audible wheezes and not labored Auscultation: clear to auscultation bilaterally Cardio Rate: regular rate Rhythm: regular rhythm Skin General skin exam: elasticity normal Neuro General: patient oriented x3 Cranial nerves: Yes Equal, round and reactive pupils present and Yes Bilaterally intact EOM present Cognition (Neuro): normal cognition Extrem Other: Moving all extremities well without any obvious deformities Course Course Course Narrative: This is a Rapid Medical Examination (RME) performed by Danny Lan PA-C in triage. Full HPI, ROS, assessment and treatment plan per primary provider in the Main ED. 53 yo male here from PCP for elevated BP readings (170/110 and 182/114) today. no hx of HTN. not on antihypetensive meds. had physical last week and there was no concern for elevated BP at that time. denies chest pain, palpitations, sob, VELARDE, dizziness, vision changes. + well appearing. Plan: labs, ekg Medical Decision Making Medical Decision Making MDM Narrative: 53-year-old male presents for evaluation of elevated blood pressure reading. He is completely asymptomatic. I reviewed his labs which show no significant abnormalities. His EKG is normal sinus rhythm with questionable T-wave inversions in aVL, otherwise unremarkable EKG, no acute ischemic changes. I discussed possible treatment with the patient or following up with his primary doctor for blood pressure treatment. He would like to be started on a medication, we will start lisinopril 10 mg orally and he reports he has another follow up with his PCP on August 12. I did discuss side effects of lisinopril usage Differential Diagnosis Differential Diagnoses: The differential diagnosis associated with the presentation includes Asymptomatic hypertension High blood pressure Chronic hypertension Hypovolemia Lab Data MDM Lab Attestation statement: I reviewed the patient's lab results. 07/29/24 14:06 07/29/24 14:06 Labs: Lab Results 07/29/24 Range/Units 14:06 WBC 5.1 (4.8-10.8) X10*3/uL RBC 5.44 (4.60-5.80) X10*6/uL Hgb 15.4 (14.0-18.0) g/dl Hct 43.9 (42.0-52.0) % MCV 80.7 (80.0-98.0) fL MCH 28.3 (27.0-33.0) pg MCHC 35.1 (31.0-36.0) g/dl RDW 12.8 (11.0-16.0) % Plt Count 239 (160-400) X10*3/uL MPV 9.0 L (9.4-12.4) fL Immature Gran % (Auto) 0.8 H (0.0-0.4) % Neut % (Auto) 54.7 (45-73) % Lymph % (Auto) 29.8 (20-40) % [place] % (Auto) 9.6 (2-11) % Eos % (Auto) 3.7 (0-4) % Baso % (Auto) 1.4 (0-2) % Lymph # (Auto) 1.5 (1.2-4.9) X10*3/uL [place] # (Auto) 0.5 (0.1-1.2) X10*3/uL Eos # (Auto) 0.2 (0.0-0.4) X10*3/uL Baso # (Auto) 0.1 (0.0-0.2) X10*3/uL Abs Immat Gran (auto) 0.04 H (0.00-0.03) X10*3/uL Absolute Neuts (auto) 2.8 (2.0-8.3) x10*3/uL Absolute Nucleated RBC 0.000 (0.0-0.012) X10*3/uL Nucleated RBC % (auto) 0.0 (0.0-0.2) /100WBC Sodium 138 (135-145) mmol/L Potassium 4.2 (3.3-5.1) mmol/L Chloride 104 (96-108) mmol/L Carbon Dioxide 27 (22-29) mmol/L Anion Gap 11 L (12-20) BUN 14 (9-16) mg/dL Creatinine 1.27 (0.5-1.4) mg/dL Estim Creat Clear Calc 77.9 Estimated GFR 59 Random Glucose 106 (60-115) mg/dL Calcium 10.0 D (8.4-10.2) mg/dL Magnesium 2.0 (1.6-2.6) mg/dL Total Bilirubin 0.6 (0.0-1.0) mg/dL AST 26 (5-37) U/L ALT 39 (0-40) U/L Alkaline Phosphatase 49 (39-117) U/L B-Natriuretic Peptide 12 (<100) pg/mL Total Protein 7.7 (6.5-8.0) g/dL Albumin 4.6 (3.5-5.0) g/dL Independent Interpretation I performed an independent interpretation of an: EKG Discharge Plan Discharge Clinical Impression: Asymptomatic hypertension Patient Disposition: Home, Self-Care Instructions: Hypertension (ED) Additional Instructions: Your blood pressure is elevated today However, your workup today was unremarkable I recommend that you take lisinopril 10 mg daily Follow-up with your primary doctor for future blood pressure maintenance The most common side effect of lisinopril is a dry cough A concerning side effects of lisinopril can be facial swelling, return to the ED immediately if you experience this Prescriptions: New lisinopril 10 mg tablet 10 mg PO DAILY Qty: 30 0RF No Action paroxetine HCl 20 mg tablet 20 mg PO DAILY Qty: 90 8RF cephalexin 250 mg capsule 250 mg PO Q6H Qty: 20 0RF Print Language: Montenegrin
--- NOTE | 2024-07-29 13:49 | ECG_ITS ---
Test Reason : hypertensive Blood Pressure : / mmHG Vent. Rate : 066 BPM Atrial Rate : 066 BPM P-R Int : 152 ms QRS Dur : 090 ms QT Int : 406 ms P-R-T Axes : 027 005 078 degrees QTc Int : 425 ms Normal sinus rhythm Nonspecific T wave abnormality Abnormal ECG No previous ECGs available Referred By: Saadia Lan Electronically Signed By:YUKO CARLIN
[2024-07-29 14:11] LABS: MANUAL DIFF FLAG NO
[2024-07-29 14:17] LABS: Basophils Absolute Auto 0.1 X10*3/uL (0.0-0.2); Basophils Percent Auto 1.4 % (0-2); Eosinophils Absolute Auto 0.2 X10*3/uL (0.0-0.4); Eosinophils Percent Auto 3.7 % (0-4); Hematocrit 43.9 % (42.0-52.0); Hemoglobin 15.4 g/dl (14.0-18.0); Imm Gran Abs Auto 0.04 X10*3/uL (0.00-0.03); Imm Gran Pct Auto 0.8 % (0.0-0.4); Lymphocytes Absolute Auto 1.5 X10*3/uL (1.2-4.9); Lymphocytes Percent Auto 29.8 % (20-40); Mean Corpuscular HGB Conc 35.1 g/dl (31.0-36.0); Mean Corpuscular Hemoglobin 28.3 pg (27.0-33.0); Mean Corpuscular Volume 80.7 fL (80.0-98.0); Monocytes Absolute Auto 0.5 X10*3/uL (0.1-1.2); Monocytes Percent Auto 9.6 % (2-11); Neutrophils Absolute Auto 2.8 x10*3/uL (2.0-8.3); Neutrophils Percent Auto 54.7 % (45-73); Platelet Count 239 X10*3/uL (160-400); Red Blood Count 5.44 X10*6/uL (4.60-5.80); Red Cell Distribution Width 12.8 % (11.0-16.0); White Blood Count 5.1 X10*3/uL (4.8-10.8)
[2024-07-29 14:35] LABS: Alanine Aminotransferase 39 U/L (0-40); Albumin Level 4.6 g/dL (3.5-5.0); Alkaline Phosphatase 49 U/L (39-117); Anion Gap 11 (12-20); Aspartate Amino Transferase 26 U/L (5-37); Bilirubin Total 0.6 mg/dL (0.0-1.0); Blood Urea Nitrogen 14 mg/dL (9-16); Carbon Dioxide 27 mmol/L (22-29); Chloride 104 mmol/L (96-108); Creatinine Clr Calc Pharmacy 77.9; Estimated Glomerular Filt Rate 59; Glucose Random 106 mg/dL (60-115); Potassium 4.2 mmol/L (3.3-5.1); Sodium 138 mmol/L (135-145); Total Protein 7.7 g/dL (6.5-8.0)
[2024-07-29 14:42] LABS: B Type Natriuretic Peptide 12 pg/mL (<100)
[2024-07-29 19:59] VITALS: BP 173/115; PULSE 68; RESP 16; TEMP 36.8; O2SAT 95
[2024-07-29 20:18] VITALS: BP 173/115
[2024-07-29] MEDS: lisinopriL 10 MG TABLET PO (20:18)
[2024-07-29 20:25] VITALS: BP 173/115; PULSE 72; RESP 16; TEMP 36.6; O2SAT 98
== END 2024-07-29 20:26 | disposition home or self-care (01) ==
PROVIDERS: Physician Assistant Medical; Emergency Provider Emergency Medicine; PCP Internal Medicine
DX: I10 Essential (primary) hypertension (principal); Z79.899 Other long term (current) drug therapy
CPT/HCPCS: 36415; 80053; 83735; 83880; 85025; 93005; 99283; 99284

== ENCOUNTER 2024-08-12 11:20 | Outpatient (AMB) | payer OTHER, SELFPAY ==
[2024-08-12 11:22] VITALS: BP 110/90; PULSE 73; O2SAT 98; BMI 29.4
--- NOTE | 2024-08-12 11:22 | A.OFFPC_ITS ---
Vital Signs 08/12/24 11:22 08/12/24 11:38 Height 5 ft 11 in Weight 211 lb 0.8 oz BMI 29.4 BP 110/90 H 138/94 H Blood Pressure Location Lt brachial Lt brachial Position Sitting Sitting Pulse 73 Pulse Source Pulse Oximeter Pulse Oximetry (%) 98 Oxygen Delivery Method Room Air Intake [place] [facility] [place] F/U Intake Note: Patient is here for hospital discharge follow up. [place] [facility] [place] Tester Sound Required: No Allergies No Known Allergies Allergy (Verified 08/12/24 11:22) Tobacco use date assessed: 07/22/24 Dental Screening Dental Screen Date: 07/22/24 H[place] [facility] [place] F/U HPI Details 53-year-old male with past medical histo ry of panic disorder last seen by Dr. Dawson coming to the office for hospital follow up. In review of the notes, patient was seen [place] [facility] [place] found to have elevated blood pressure 182/114 without symptoms. EKG was normal sinus and lab work was negative started on lisinopril 10 mg discharged home. Patient called to report elevated blood pressures last Thursday and was told to increase lisinopril to 20 mg. His readings at home have been lower but still elevated. He denies any symptoms. [facility] Medical History (Updated 08/12/24 @ 11:24 by Iliana Arrington PA-C) Panic disorder Depression Surgical History (Updated 01/25/24 @ 15:04 by Brenda Romero RN) History of colonoscopy Family History Mother No problems noted. Father No problems noted. Social History (Updated 01/25/24 @ 15:04 by Brenda Romero RN) Housing: House Patient Tobacco Use Status: Never used Tobacco Tobacco use type: Cigarette e-Cigarette/Vaping Use: Never Used Second Hand Smoke Exposure: No service: No Current occupational status: employed Cognitive needs: No Hearing needs: No Vision needs: No Questionnaire Thrive Questionnaire Date Thrive assessed: 07/15/24 I am a: Patient What is your living situation today?: I have a steady place to live Within the past 12 months, did the food you bought not last and you didn't have the money to get more?: I choose not to answer this question Within the past 12 months, did you worry whether your food would run out before you got money to buy more?: I choose not to answer this question Do you have trouble paying for medicines?: No Do you have trouble getting transportation to medical appointments?: No Do you have trouble paying your heating and electricity bill?: No Do you have trouble taking care of your child, family member or friend?: No Do you have trouble with day-to-day activities such as bathing, preparing meals, shopping, managing finances, etc.?: No Are you currently unemployed and looking for a job?: No Are you interested in more education?: No Please select the resources that you would like help with: None Currently or been in a relationship where the following occur: No concerns reported THRIVE Score: 0 AUDIT C Alcohol Use Questionnaire (AUDIT-C) 1. How often do you have a drink containing alcohol?: 2-3 times a week 2. How many drinks containing alcohol do you have on a typical day when you are drinking?: 3 or 4 3. How often do you have six or more drinks on one occasion?: Less than monthly Total Score: 5 ANNABELLE-7 AMB Questionnaire ANNABELLE-7 Date ANNABELLE - 7 assessed: 07/22/24 Source: Developed by Drs. Sebastián Drake, Kimberlee Denton, Placido Moses and colleagues, with an educational christopher from [employer]. Review of Systems Const Denies chills, Denies fever(s), Denies headache(s) and Denies poor appetite Eyes Denies change in vision ENT Denies dizziness and Denies headache(s) Card Denies chest pain, Denies syncope, Denies edema, Denies irregular heart rhythm, Denies lightheadedness and Denies dyspnea Resp Denies dyspnea GI Denies abdominal pain, Denies nausea and Denies vomiting Reports no additional complaints Musc Reports no additional complaints and Denies abnormal gait Skin/Breast Reports system reviewed and no additional complaints, except as documented Neuro Denies abnormal gait, Denies dizziness, Denies syncope and Denies headache(s) Psych Reports no additional complaints Physical exam (Primary Care) Vital Signs: Oxygen Delivery Method Room Air 08/12/24 11:22 Tobacco/Smoking Status: Tobacco use Status Tobacco use date assessed 07/22/24 08/03/24 14:31 Patient Tobacco Use Status Never used Tobacco 08/03/24 14:31 Tobacco use type Cigarette 08/03/24 14:31 e-Cigarette/Vaping Use Never Used 08/03/24 14:31 Thrive Assessment: Date of Thrive Assessment Date Thrive assessed 07/15/24 08/03/24 14:31 Currently or been in a relationship where the following occur: No concerns reported Const General: cooperative, healthy appearing, comfortable and no acute distress Orientation/consciousness: patient oriented x3 HENMT Head: Yes normocephalic Ears: hearing grossly normal bilaterally General nose exam: Normal external nose present Eyes General: appearance normal, both eyes and all related structures Conjunctivae: conjunctivae normal Neck Neck: Yes full ROM and Yes no lymphadenopathy Resp Effort & Inspection: normal respiratory effort Auscultation: clear to auscultation bilaterally, no crackles, no rales, no rhonchi and no wheezes Cardio Rate: regular rate Rhythm: regular rhythm Skin General skin exam: no rashes or lesions noted Neuro General: patient oriented x3 Gait exam (Neuro): Normal gait present Extrem General: Yes normal to inspection, Yes full ROM and No edema Psych Affect: normal affect Attitude: cooperative Insight: Good insight present (Psych) Judgement: Good judgement present (Psych) Coding Level of Care Code Est Pt Level 3 (55053) Diagnoses Hypertension I10 Panic disorder F41.0 Assessment & Plan Assessment & Plan (1) Hypertension: Code(s): I10 - Essential (primary) hypertension Category: Medical Plan: Blood pressure was retaken 130/94 mildly elevated. He is doing well on the current medication and denies any side effects. Advised patient to continue on lisinopril 20 mg and follow up in 1 month and continue taking blood pressures. If blood pressures remain elevated at home please reach out to the office for sooner appointment. Reviewed red flag symptoms and when to present to the ER. (2) Panic disorder: Code(s): F41.0 - Panic disorder [episodic paroxysmal anxiety] Category: Medical Plan: Doing well on current medication. Plan This note was constructed using voice recognition software. While every effort has been made to ensure accuracy and cutting machine tender helper, still areas may have been included sometimes these areas may affect the content or meeting of the given symptoms. Total time spent caring for the patient today was 30 minutes. This includes time spent before the visit reviewing the chart, time spent during the visit, and time spent after the visit and documentation. Orders: Orders Comprehensive Met. Panel Today Z00.00 - Encounter for general adult medical examination without abnormal findings
[2024-08-12 11:38] VITALS: BP 138/94
== END 2024-08-12 11:48 | disposition home or self-care (01) ==
PROVIDERS: PCP Internal Medicine
DX: I10 Essential (primary) hypertension (principal); F41.0 Panic disorder [episodic paroxysmal anxiety]

== ENCOUNTER → 2024-08-12 11:20 | Outpatient (BNVA) | payer OTHER, SELFPAY | PROVIDERS: PCP Internal Medicine ==

== ENCOUNTER 2024-09-09 08:19 | Outpatient (AMB) | payer OTHER, SELFPAY ==
[2024-09-09 08:26] VITALS: BP 124/90; PULSE 94; O2SAT 95; BMI 29.4
--- NOTE | 2024-09-09 08:26 | A.OFFPC_ITS ---
Vital Signs 09/09/24 08:26 09/09/24 08:52 Height 5 ft 11 in Weight 211 lb BMI 29.4 BP 124/90 H 118/82 Blood Pressure Location Lt brachial Lt brachial Position Sitting Sitting Pulse 94 Pulse Source Pulse Oximeter Pulse Oximetry (%) 95 Oxygen Delivery Method Room Air Intake Visit Reasons: f/u BP Secondary Spanish Teacher Required: No Allergies No Known Allergies Allergy (Verified 09/09/24 08:26) Medication List - Last Reconciled 09/09/24 by Iliana Arrington PA-C cephalexin 250 mg PO Q6H lisinopril 20 mg PO DAILY paroxetine HCl 20 mg PO DAILY Tobacco use date assessed: 07/22/24 Dental Screening Dental Screen Date: 07/22/24 HPI f/u BP HPI Details 53-year-old male with past medical histo ry of panic disorder last seen August 2024 coming in for blood pressure check. At his last visit lisinopril was continued at 20 mg. Patient states he is feeling generally well and has no acute concerns today. His blood pressures at home have been elevated in the 140-150 systolic range and 90 diastolic range. When he takes his blood pressure he does not sit down and relax for several minutes before taking the readings. [facility] Medical History (Updated 09/09/24 @ 09:38 by Iliana Arrington PA-C) Panic disorder Depression Surgical History (Updated 01/25/24 @ 15:04 by Brenda Romero RN) History of colonoscopy Family History Mother No problems noted. Father No problems noted. Social History (Updated 01/25/24 @ 15:04 by Brenda Romero RN) Housing: House Patient Tobacco Use Status: Never used Tobacco Tobacco use type: Cigarette e-Cigarette/Vaping Use: Never Used Second Hand Smoke Exposure: No service: No Current occupational status: employed Cognitive needs: No Hearing needs: No Vision needs: No Questionnaire Thrive Questionnaire Date Thrive assessed: 07/15/24 I am a: Patient What is your living situation today?: I have a steady place to live Within the past 12 months, did the food you bought not last and you didn't have the money to get more?: I choose not to answer this question Within the past 12 months, did you worry whether your food would run out before you got money to buy more?: I choose not to answer this question Do you have trouble paying for medicines?: No Do you have trouble getting transportation to medical appointments?: No Do you have trouble paying your heating and electricity bill?: No Do you have trouble taking care of your child, family member or friend?: No Do you have trouble with day-to-day activities such as bathing, preparing meals, shopping, managing finances, etc.?: No Are you currently unemployed and looking for a job?: No Are you interested in more education?: No Please select the resources that you would like help with: None Currently or been in a relationship where the following occur: No concerns reported THRIVE Score: 0 AUDIT C Alcohol Use Questionnaire (AUDIT-C) 1. How often do you have a drink containing alcohol?: 2-3 times a week 2. How many drinks containing alcohol do you have on a typical day when you are drinking?: 3 or 4 3. How often do you have six or more drinks on one occasion?: Less than monthly Total Score: 5 ANNABELLE-7 AMB Questionnaire ANNABELLE-7 Date ANNABELLE - 7 assessed: 07/22/24 Source: Developed by Drs. Sebastián Drake, Kimberlee Denton, Placido Moses and colleagues, with an educational christopher from [employer]. Review of Systems Const Denies body aches, Denies chills, Denies fever(s), Denies headache(s) and Denies poor appetite Eyes Reports no additional complaints ENT Denies dizziness and Denies headache(s) Card Denies chest pain, Denies syncope, Denies irregular heart rhythm, Denies lightheadedness and Denies dyspnea Resp Denies cough and Denies dyspnea GI Denies abdominal pain, Denies constipation, Denies diarrhea, Denies nausea and Denies vomiting Reports no additional complaints Musc Reports no additional complaints and Denies abnormal gait Skin/Breast Reports system reviewed and no additional complaints, except as documented Neuro Denies abnormal gait, Denies dizziness, Denies syncope and Denies headache(s) Psych Reports no additional complaints Physical exam (Primary Care) Vital Signs: Last Vital Signs Pulse 94 09/09/24 08:26 BP 124/90 H 09/09/24 08:26 Pulse Ox 95 09/09/24 08:26 Oxygen Delivery Method Room Air 09/09/24 08:26 BMI result Body Mass Index 29.4 Tobacco/Smoking Status: Tobacco use Status Tobacco use date assessed 07/22/24 09/09/24 08:30 Patient Tobacco Use Status Never used Tobacco 09/09/24 08:30 Tobacco use type Cigarette 09/09/24 08:30 e-Cigarette/Vaping Use Never Used 09/09/24 08:30 Thrive Assessment: Date of Thrive Assessment Date Thrive assessed 07/15/24 09/09/24 08:30 Currently or been in a relationship where the following occur: No concerns reported Const General: cooperative, healthy appearing, comfortable and no acute distress Orientation/consciousness: patient oriented x3 HENMT Head: Yes normocephalic Ears: hearing grossly normal bilaterally General nose exam: Normal external nose present Eyes General: appearance normal, both eyes and all related structures Conjunctivae: conjunctivae normal Neck Neck: Yes full ROM and Yes no lymphadenopathy Resp Effort & Inspection: normal respiratory effort Auscultation: clear to auscultation bilaterally, no crackles, no rales, no rhonchi and no wheezes Cardio Rate: regular rate Rhythm: regular rhythm Skin General skin exam: no rashes or lesions noted Neuro General: patient oriented x3 Gait exam (Neuro): Normal gait present Extrem General: Yes normal to inspection, Yes full ROM and No edema Psych Affect: normal affect Attitude: cooperative Insight: Good insight present (Psych) Judgement: Good judgement present (Psych) Coding Level of Care Code Est Pt Level 3 (94662) Diagnoses Hypertension I10 Panic disorder F41.0 Hypercholesteremia E78.00 Assessment & Plan Assessment & Plan (1) Hypertension: Code(s): I10 - Essential (primary) hypertension Category: Medical Plan: Continue on current blood pressure medication. Avoid salt intake and encourage healthy diet and regular exercise. Blood pressure readings in the office within normal limits today. Discussed proper technique for taking blood pressures at home and advised to follow up in 2 weeks with nurse navigator for blood pressure check and again in 2 months. (2) Panic disorder: Code(s): F41.0 - Panic disorder [episodic paroxysmal anxiety] Category: Medical Plan: Continue on present medication. (3) Hypercholesteremia: Code(s): E78.00 - Pure hypercholesterolemia, unspecified Category: Medical Plan: Avoid foods that are high in cholesterol such as red meat, fried foods, eggs and baked goods. Triglyceride goal of less than 150 and LDL goal of less than 130. Reviewed with patient that LDL has been elevated on several occasions he has declined medication at this time and would like to work on diet and exercise. We will repeat in 2 months. Plan This note was constructed using voice recognition software. While every effort has been made to ensure accuracy and reo asset manager, still areas may have been included sometimes these areas may affect the content or meeting of the given symptoms. Total time spent caring for the patient today was 30 minutes. This includes time spent before the visit reviewing the chart, time spent during the visit, and time spent after the visit and documentation. Orders: Orders Lipid Panel 2 Months Z00.00 - Encounter for general adult medical examination without abnormal findings
[2024-09-09 08:52] VITALS: BP 118/82
== END 2024-09-09 09:04 | disposition home or self-care (01) ==
LOC: HO.HMCH 08:20
PROVIDERS: PCP Internal Medicine
DX: I10 Essential (primary) hypertension (principal); F41.0 Panic disorder [episodic paroxysmal anxiety]; E78.00 Pure hypercholesterolemia, unspecified

== ENCOUNTER → 2024-09-09 08:19 | Outpatient (BNVA) | payer OTHER, SELFPAY | PROVIDERS: PCP Internal Medicine ==

== ENCOUNTER 2024-11-11 08:25 | Outpatient (AMB) | payer OTHER, SELFPAY ==
--- OUTSIDE RECORDS SUMMARY | 2024-11-11 08:34 | XMS_ITS ---
Author Organization [facility] Address [address] [place] [address] Care Team Providers Care Panel Maker Name Role Phone Shubham Dawson MD Primary Care Provider Unavaila Humberto Barnes Jr Unavailable REASON FOR VISIT screening,hx polyps Encounters Encounter Location Date Provider Diagnosis [facility] [place] [address] [place] [phone] 01/27/2024 Humberto Boggs Jr Encounter for screening colonoscopy Z12.11 and Colon polyps K63.5 ASSESSMENTS Encounter Date Diagnosis Assessment Notes Treatment Notes Treatment Clinical Notes 01/27/2024 Encounter for screening colonoscopy (ICD-10 - Z12.11) 01/27/2024 Colon polyps (ICD-10 - K63.5) PLAN OF TREATMENT No Information
--- OUTSIDE RECORDS SUMMARY | 2024-11-11 08:34 | XMS_ITS ---
Author Organization [facility] Address [address] [place] [phone] Care Team Providers Care Data Report Analyst Name Role Phone Shubham Dawson MD Primary Care Provider Unavaila Humberto Barnes Jr Unavailable REASON FOR VISIT pathology Encounters Encounter Location Date Provider Diagnosis [facility] [address] [place] [phone] 01/29/2024 Humberto Boggs Jr PLAN OF TREATMENT No Information
--- OUTSIDE RECORDS SUMMARY | 2024-11-11 08:34 | XMS_ITS ---
Author Organization [facility] Address [address] [place] [address] Care Team Providers Care Foster Parent Name Role Phone Shubham Dawson MD Primary Care Provider Humberto Bynum Jr Unavailable [phone] ALLERGIES No Known Allergies REASON FOR VISIT Patient presents today for a colon screening MEDICATIONS Medication SIG (Take, Route, Frequency, Duration) Notes Start Date End Date Status MiraLax (colon prep) 17 GM/SCOOP mixed with Gatorade or Crystal Light Orally begin at 5:00 p.m. the day before the procedure for 1 day 12/25/2023 Active PARoxetine HCl 20 MG TK 1 T PO QD Oral for 90 Active IMMUNIZATIONS Vaccine Route Administration Date Status Comme nts Influenza Unknown 12/25/2023 Refused SOCIAL HISTORY Tobacco Use: Social History Observation Description Date Details (start date - stop date) Never Smoker NA - NA Sex Assigned At : Social History Observation Description Sex Assigned At Unknown Tobacco Use/Smoking Question Answer Notes Patient is a nonsmoker Alcohol Screen Question Answer Notes Did you have a drink contain ing alcohol in the past year? Yes How often did you have a dri nk containing alcohol in the past year? 2 to 3 times a week (3 points) How many drinks did you have on a typical day when you were drinking in the past year? 3 or 4 drinks (1 point) How often did you have 6 or more drinks on one occasion in the past year? Never (0 point) Points 4 Interpretation Positive PROBLEMS Problem Type ICD Code Onset Dates Problem Status W/U Status Risk SNOMED Code Notes Problem Colon cancer screening (Z12.11) Active confirmed 276840385 Problem Personal history of colonic polyps (Z86.010) Active confirmed 954912447 Problem Encounter for other preprocedural examination (Z01.818) Active confirmed 864178589 VITAL SIGNS BMI 30.29 kg/m2 12/25/2023 Blood pressure systolic 000 mm Hg 12/25/19 24 Blood pressure diastolic 00 mm Hg 024 Height 70 in 12/25/2023 Temperature 96.9 degrees Fahrenheit 12/25/19 24 Weight 211 lb 2 oz lbs 12/25/2023 Encounters Encounter Location Date Provider Diagnosis [facility] [address] [place] [address] 12/25/2023 Humberto Boggs Jr Colon cancer screening Z12.11 ; Encounter for other preprocedural examination Z01.818 and Personal history of colonic polyps Z86.010 ASSESSMENTS Encounter Date Diagnosis Assessment Notes Treatment Notes Treatment Clinical Notes 12/25/2023 Colon cancer screening (ICD-10 - Z12.11) Colonoscopy material was printed 12/25/2023 Encounter for other preprocedural examination (ICD-10 - Z01.818) 12/25/2023 Personal history of colonic polyps (ICD-10 - Z86.010) PLAN OF TREATMENT Medication Medication Name Sig Start Date Stop Date Notes MiraLax (colon prep) 17 GM/SCOOP mixed with Gatorade or Crystal Light Orally begin at 5:00 p.m. the day before the procedure for 1 day 12/25/2023 Treatment Notes Assessment Notes Colon cancer screening Colonoscopy mater ial was printed Future Test Test Name Order Date COLONOSCOPY 12/25/2023 Next Appt Details Follow Up: 1 Year, Reason: Progress Notes * Examination Category Sub-Category Detail Notes General Examination GENERAL APPEARANCE: in no ac [place] distress HEAD: normocephalic EYES: sclera non-icteric NECK/THYROID: no lymphadenopathy HEART: S1, S2 normal, no mu rmurs CHEST: normal shape and exp ansion LUNGS: clear to auscultatio n bilaterally ABDOMEN: soft, nontender, non distended, bowel sounds present, no organomegaly SKIN: anicteric EXTREMITIES: no clubbing, cyanosi s, or edema PSYCH: cognitive function i ntact ORAL CAVITY: mucosa moist
--- OUTSIDE RECORDS SUMMARY | 2024-11-11 08:35 | XMS_ITS | Patient Health Record ---
Author Organization [facility] Address [address] [place] [address] Care Team Providers Care Fire Extinguisher Repairer Name Role Phone Shubham Dawson MD Primary Care Provider Humberto Bynum Jr Unavailable [phone] ALLERGIES No Known Allergies RESULTS Component Value Reference Range Notes Pathology Reviewed date:01/29/2024 03:02:15 PM Interpretation: Performing Lab:[facility], [address] [place] [phone] Notes/Report: REASON FOR REFERRAL No Information MEDICATIONS Medication SIG (Take, Route, Frequency, Duration) Notes Start Date End Date Status MiraLax (colon prep) 17 GM/SCOOP mixed with Gatorade or Crystal Light Orally begin at 5:00 p.m. the day before the procedure for 1 day 12/25/2023 Active PARoxetine HCl 20 MG TK 1 T PO QD Oral for 90 Active IMMUNIZATIONS Vaccine Route Administration Date Status Comme nts Influenza Unknown 08/21/2020 Administered Influenza Unknown 12/25/2023 Refused SOCIAL HISTORY Tobacco [...] Problem Colon cancer screening (Z12.11) Active confirmed 195421069 Problem Personal history of colonic polyps (Z86.010) Active confirmed 486721058 Problem Encounter for other preprocedural examination (Z01.818) Active confirmed 680090812 VITAL SIGNS Temperature 96.9 degrees Fahrenheit 12/25/2023 Blood pressure diastolic 00 mm Hg 12/25/2023 Height 70 in 12/25/2023 Blood pressure systolic 000 mm Hg 12/25/2023 Weight 211 lb 2 oz lbs 12/25/2023 BMI 30.29 kg/m2 12/25/2023 Encounters Encounter Location Date Provider Diagnosis [facility] [facility] [address], [place] [phone] 01/27/2024 Humberto Boggs Jr Encounter for screening colonoscopy Z12.11 and Colon polyps K63.5 [facility] [address] [place] [phone] 12/25/2023 Humberto Boggs Jr Colon cancer screening Z12.11 ; Encounter for other preprocedural examination Z01.818 and Personal history of colonic polyps Z86.010 [facility] [address] [place] [phone] 01/29/2024 Humberto Boggs Jr ASSESSMENTS Encounter Date Diagnosis Assessment Notes Treatment Notes Treatment Clinical Notes 01/27/2024 Encounter for screening colonoscopy (ICD-10 - Z12.11) 01/27/2024 Colon polyps (ICD-10 - K63.5) 12/25/2023 Colon cancer screening (ICD-10 - Z12.11) Colonoscopy material was printed 12/25/2023 Encounter for other preprocedural examination (ICD-10 - Z01.818) 12/25/2023 Personal history of colonic polyps (ICD-10 - Z86.010) PLAN OF TREATMENT Future Test Test Name Order Date COLONOSCOPY 08/30/2020 COLONOSCOPY 12/25/2023 Insurance Providers Payer Name Payer Address Payer Phone Subscriber Number Group Number Insured Name Patient Relationship to Insured Coverage Start Date Coverage End Date [facility] [address] [place] [phone] [id number] RICKEY SUMMERS Self - patient is the insured MEDICAL (GENERAL) HISTORY Medical History History ICD Code Depression Colon polyps, colonoscopy 09/28, multipl e adenomas, three-year followup Surgical History Surgery Date(Month/Year)
--- NOTE | 2024-11-11 08:36 | A.OFFPC_ITS ---
Vital Signs 11/11/24 08:38 11/11/24 09:07 Height 5 ft 11 in Weight 213 lb 6 oz BMI 29.8 BP 120/84 112/80 Blood Pressure Location Lt brachial Lt brachial Position Sitting Sitting Pulse 59 Pulse Source Pulse Oximeter Pulse Oximetry (%) 95 Oxygen Delivery Method Room Air Intake Visit Reasons: f/u BP and HLD Camper Assembler Required: No Accompanied by: Self / Same As Patient Allergies No Known Allergies Allergy (Verified 11/11/24 08:40) Medication List - Last Reconciled 11/11/24 by Iliana Arrington PA-C lisinopril 20 mg PO DAILY paroxetine HCl 20 mg PO DAILY Tobacco use date assessed: 11/11/24 Dental Screening Dental Screen Date: 11/11/24 Did you have a dental visit in the last 12 months?: Yes Did you have a dental problem in the last 6 months where you did not have access to dental care?: No Was dental information given to patient?: Patient has dentist HPI f/u BP and HLD HPI Details 53-year-old male with past medical histo ry of panic disorder last seen September 2024 coming in for blood pressure check. Patient tells us today his blood pressures at home have been elevated in the 140 systolic over 90s diastolic however has seen an improvement since starting the lisinopril. Did miss his appointment with the nurse navigator for blood pressure check however he did bring in his cuff today in the office. [facility] Medical History Panic disorder Depression Surgical History History of colonoscopy Family History Mother No problems noted. Father No problems noted. Social History Housing: House Patient Tobacco Use Status: Never used Tobacco Tobacco use type: Cigarette e-Cigarette/Vaping Use: Never Used Second Hand Smoke Exposure: No service: No Current occupational status: employed Cognitive needs: No Hearing needs: No Vision needs: No Questionnaire PHQ-9 Over the last 2 weeks, how often have you been bothered by any of the following problems? 1. Little interest or pleasure in doing things: not at all 2. Feeling down, depressed, or hopeless: not at all 3. Trouble falling or staying asleep, or sleeping too much: not at all 4. Feeling tired or having little energy: not at all 5. Poor appetite or overeating: not at all 6. Feeling bad about yourself - or that you are a failure or have let yourself or your family down: not at all 7. Trouble concentrating on things, such as reading the newspaper or watching television: not at all 8. Moving or speaking so slowly that other people could have noticed. Or the opposite - being so fidgety or restless that you have been moving around a lot more than usual: not at all 9. Thoughts that you would be better off or of hurting yourself in some way: not at all Total score: 0 Depression Screening Interpretation: Negative Depression Screening Done: Yes 10133 - PHQ-9 Billing: Yes Source: Developed by Drs. Sebastián Drake, Kimberlee Denton, Placido Moses and colleagues, with an educational christopher from [employer]. Thrive Questionnaire Date Thrive assessed: 11/11/24 I am a: Patient What is your living situation today?: I have a steady place to live Within the past 12 months, did the food you bought not last and you didn't have the money to get more?: I choose not to answer this question Within the past 12 months, did you worry whether your food would run out before you got money to buy more?: I choose not to answer this question Do you have trouble paying for medicines?: No Do you have trouble getting transportation to medical appointments?: No Do you have trouble paying your heating and electricity bill?: No Do you have trouble taking care of your child, family member or friend?: No Do you have trouble with day-to-day activities such as bathing, preparing meals, shopping, managing finances, etc.?: No Are you currently unemployed and looking for a job?: No Are you interested in more education?: No Please select the resources that you would like help with: None Currently or been in a relationship where the following occur: No concerns reported THRIVE Score: 0 AUDIT C Alcohol Use Questionnaire (AUDIT-C) 1. How often do you have a drink containing alcohol?: 2-3 times a week 2. How many drinks containing alcohol do you have on a typical day when you are drinking?: 3 or 4 3. How often do you have six or more drinks on one occasion?: Less than monthly Total Score: 5 ANNABELLE-7 AMB Questionnaire ANNABELLE-7 Date ANNABELLE - 7 assessed: 11/11/24 Feeling nervous, anxious, or on edge: 0 = Not at all Not being able to stop or control worryin = Not at all Worrying too much about different things: 0 = Not at all Trouble relaxin = Not at all Being so restless that it is hard to sit still: 0 = Not at all Becoming easily annoyed or irritable: 0 = Not at all Feeling afraid as if something awful might happen: 0 = Not at all Total ANNABELLE-7 score (0-4 normal; 5-9 mild; 10-14 moderate; 15-21 severe): 0 Source: Developed by Drs. Sebastián Drake, Kimberlee Denton, Placido Moses and colleagues, with an educational christopher from [employer]. Review of Systems Const Denies body aches, Denies chills, Denies fever(s), Denies headache(s), Reports lethargy, Denies poor appetite, Reports snoring and Reports stops breathing during sleep Eyes Reports no additional complaints ENT Denies dizziness and Denies headache(s) Card Denies chest pain, Denies syncope, Denies edema, Denies irregular heart rhythm, Denies lightheadedness and Denies dyspnea Resp Denies cough, Denies dyspnea and Reports snoring GI Denies abdominal pain, Denies nausea and Denies vomiting Reports no additional complaints Musc Reports no additional complaints and Denies abnormal gait Skin/Breast Reports system reviewed and no additional complaints, except as documented Neuro Denies abnormal gait, Denies dizziness, Denies syncope and Denies headache(s) Psych Reports no additional complaints Physical exam (Primary Care) Tobacco/Smoking Status: Tobacco use Status Tobacco use date assessed 07/22/24 11/11/24 08:36 Patient Tobacco Use Status Never used Tobacco 11/11/24 08:36 Tobacco use type Cigarette 11/11/24 08:36 e-Cigarette/Vaping Use Never Used 11/11/24 08:36 Depression Screening Interpretation: Negative Thrive Assessment: Date of Thrive Assessment Date Thrive assessed 11/11/24 11/11/24 08:36 Currently or been in a relationship where the following occur: No concerns reported Const General: cooperative, healthy appearing, comfortable and no acute distress Orientation/consciousness: patient oriented x3 HENMT Head: Yes normocephalic Ears: hearing grossly normal bilaterally General nose exam: Normal external nose present Eyes General: appearance normal, both eyes and all related structures Conjunctivae: conjunctivae normal Neck Neck: Yes full ROM and Yes no lymphadenopathy Resp Effort & Inspection: normal respiratory effort Auscultation: clear to auscultation bilaterally, no crackles, no rales, no rhonchi and no wheezes Cardio Rate: regular rate Rhythm: regular rhythm Skin General skin exam: no rashes or lesions noted Neuro General: patient oriented x3 Gait exam (Neuro): Normal gait present Extrem General: Yes normal to inspection, Yes full ROM and No edema Psych Affect: normal affect Attitude: cooperative Insight: Good insight present (Psych) Judgement: Good judgement present (Psych) Coding Level of Care Code Est Pt Level 4 (14057) Diagnoses Hypertension I10 Hypercholesteremia E78.00 Hypersomnolence G47.10 Additional Codes PHQ-9 - 33635 - PHQ-9 Billing: Yes ([id number]) Assessment & Plan Assessment & Plan (1) Hypertension: Code(s): I10 - Essential (primary) hypertension Category: Medical Plan: Continue on current blood pressure medication. Avoid salt intake and encourage healthy diet and regular exercise. Blood pressure at goal today. When blood pressure was compared to at home monitor blood pressure in the office 112/80 and monitor read 133/88. Discussed with patient the monitor is reading above normal may be due to the cuff being too large for the patient's arm. May continue to take blood pressure at home per reach out to the office if they are persistently elevated. (2) Hypercholesteremia: Code(s): E78.00 - Pure hypercholesterolemia, unspecified Category: Medical Plan: Avoid foods that are high in cholesterol such as red meat, fried foods, eggs and baked goods. Triglyceride goal of less than 150 and LDL goal of less than 130. Reminded about blood work (3) Hypersomnolence: Code(s): G47.10 - Hypersomnia, unspecified Category: Medical Plan: Patient complaining of hypersomnolence and has been told he snores and gasps for air at night. Ordered for home sleep study and we will follow up at next visit. Plan This note was constructed using voice recognition software. While every effort has been made to ensure accuracy and mechanical drawing teacher, still areas may have been included sometimes these areas may affect the content or meeting of the given symptoms. Total time spent caring for the patient today was 30 minutes. This includes time spent before the visit reviewing the chart, time spent during the visit, and time spent after the visit and documentation. Orders: Orders RT home sleep study Today G47.10 - Hypersomnia, unspecified
[2024-11-11 08:38] VITALS: BP 120/84; PULSE 59; O2SAT 95; BMI 29.8
[2024-11-11 09:07] VITALS: BP 112/80
== END 2024-11-11 09:08 | disposition home or self-care (01) ==
PROVIDERS: PCP Internal Medicine
DX: I10 Essential (primary) hypertension (principal); E78.00 Pure hypercholesterolemia, unspecified; G47.10 Hypersomnia, unspecified

== ENCOUNTER → 2024-11-11 08:25 | Outpatient (BNVA) | payer OTHER, SELFPAY | PROVIDERS: PCP Internal Medicine | DX: I10 Essential (primary) hypertension (principal); E78.00 Pure hypercholesterolemia, unspecified; G47.10 Hypersomnia, unspecified | CPT/HCPCS: 96127 ==

== ENCOUNTER → 2024-12-27 07:49 | Outpatient (REF) | payer OTHER, SELFPAY ==
--- OUTSIDE RECORDS SUMMARY | 2024-12-27 07:52 | XMS_ITS ---
Author Organization [facility] Address [address] [place] [address] Care Team Providers Care Paving Plant Operator Name Role Phone Shubham Dawson MD Primary Care Provider Unavaila Humberto Barnes Jr Unavailable REASON FOR VISIT screening,hx polyps Encounters Encounter Location Date Provider Diagnosis [facility] Outpatient [address] [place] [phone] 01/27/2024 Humberto Boggs Jr Encounter for screening colonoscopy Z12.11 and Colon polyps K63.5 ASSESSMENTS Encounter Date Diagnosis Assessment Notes Treatment Notes Treatment Clinical Notes 01/27/2024 Encounter for screening colonoscopy (ICD-10 - Z12.11) 01/27/2024 Colon polyps (ICD-10 - K63.5) PLAN OF TREATMENT No Information
--- OUTSIDE RECORDS SUMMARY | 2024-12-27 07:53 | XMS_ITS ---
Author Organization [facility] Address [address] [place] [address] Care Team Providers Care Scheduler Maintenance Name Role Phone Shubham Dawson MD Primary Care Provider Humberto Bynum Jr Unavailable [phone] ALLERGIES No Known Allergies REASON FOR VISIT [...] Problem Colon cancer screening (Z12.11) Active confirmed 134118501 Problem Personal history of colonic polyps (Z86.010) Active confirmed 306994794 Problem Encounter for other preprocedural examination (Z01.818) Active confirmed [id number] VITAL SIGNS BMI 30.29 kg/m2 12/25/2023 Blood pressure systolic 000 mm Hg 12/25/19 24 Blood pressure diastolic 00 mm Hg 024 Height 70 in 12/25/2023 Temperature 96.9 degrees Fahrenheit 12/25/19 24 Weight 211 lb 2 oz lbs 12/25/2023 Encounters Encounter Location Date Provider Diagnosis [facility] [address] [place] [address] 12/25/2023 Humberto Boggs Jr Colon cancer screening [...] General Examination GENERAL APPEARANCE: in no ac jude distress HEAD: normocephalic EYES: sclera non-icteric NECK/THYROID: no lymphadenopathy HEART: S1, S2 normal, no mu rmurs CHEST: normal shape and exp ansion LUNGS: clear to auscultatio n bilaterally ABDOMEN: soft, nontender, non distended, bowel sounds present, no organomegaly SKIN: anicteric EXTREMITIES: no clubbing, cyanosi s, or edema PSYCH: cognitive function i ntact ORAL CAVITY: mucosa moist
--- OUTSIDE RECORDS SUMMARY | 2024-12-27 07:53 | XMS_ITS ---
Author Organization [facility] Address [address] [place] [phone] Care Team Providers Care Head Sulfide Operator Name Role Phone Shubham Dawson MD Primary Care Provider Unavaila Humberto Barnes Jr Unavailable REASON FOR VISIT pathology Encounters Encounter Location Date Provider Diagnosis [facility] [address] [place] [phone] 01/29/2024 Humberto Boggs Jr PLAN OF TREATMENT No Information
--- OUTSIDE RECORDS SUMMARY | 2024-12-27 07:53 | XMS_ITS | Patient Health Record ---
Author Organization [facility] Address [address] [place] [address] Care Team Providers Care Fire Technology Instructor Name Role Phone Shubham Dawson MD Primary Care Provider Humberto Bynum Jr Unavailable [phone] ALLERGIES No Known Allergies RESULTS Component Value Reference Range Notes Pathology Reviewed date:01/29/2024 03:02:15 PM Interpretation: Performing Lab:[facility], [address] [place] [phone] Notes/Report: REASON FOR REFERRAL No Information MEDICATIONS [...] Problem Colon cancer screening (Z12.11) Active confirmed 982481149 Problem Personal history of colonic polyps (Z86.010) Active confirmed 014901821 Problem Encounter for other preprocedural examination (Z01.818) Active confirmed [id number] Encounters Encounter Location Date Provider Diagnosis [facility] Outpatient [address], [place] [phone] 01/27/2024 Humberto Boggs Jr Encounter for screening colonoscopy Z12.11 and Colon polyps K63.5 [facility] [address] [place] [address] 01/29/2024 Humberto Boggs Jr ASSESSMENTS Encounter Date Diagnosis Assessment Notes Treatment Notes Treatment Clinical Notes 01/27/2024 Encounter for screening colonoscopy (ICD-10 - Z12.11) 01/27/2024 Colon polyps (ICD-10 - K63.5) PLAN OF TREATMENT Future Test Test Name Order Date COLONOSCOPY 08/30/2020 COLONOSCOPY 12/25/2023 Insurance Providers Payer Name Payer Address Payer Phone Subscriber Number Group Number Insured Name Patient Relationship to Insured Coverage Start Date Coverage End Date [facility] [address] [place] [phone] [id number] RICKEY SUMMERS Self - patient is the insured MEDICAL (GENERAL) HISTORY Medical History History ICD Code Depression Colon polyps, colonoscopy 09/28, multipl e adenomas, three-year followup Surgical History Surgery Date(Month/Year)
[2024-12-27 09:19] LABS: Alanine Aminotransferase 42 U/L (0-40); Albumin Level 4.4 g/dL (3.5-5.0); Alkaline Phosphatase 43 U/L (39-117); Anion Gap 11 (12-20); Aspartate Amino Transferase 26 U/L (5-37); Bilirubin Total 0.6 mg/dL (0.0-1.0); Blood Urea Nitrogen 16 mg/dL (9-16); Calcium 9.4 mg/dL (8.4-10.2); Carbon Dioxide 25 mmol/L (22-29); Chloride 110 mmol/L (96-108); Cholesterol 226 mg/dL (<200); Estimated Glomerular Filt Rate > 60; Glucose Random 125 mg/dL (60-115); HDL Cholesterol 35 mg/dL (>40); LDL Cholesterol Calculated 163 mg/dL (<100); Potassium 5.3 mmol/L (3.3-5.1); Sodium 141 mmol/L (135-145); Total Protein 7.6 g/dL (6.5-8.0); Triglycerides 144 mg/dL (<150)
== END ==
LOC: HO.SL 07:49
PROVIDERS: PCP Internal Medicine
DX: Z00.00 Encounter for general adult medical examination without abnormal findings (principal); G47.10 Hypersomnia, unspecified; R06.83 Snoring; R40.0 Somnolence; Z13.220 Encounter for screening for lipoid disorders
CPT/HCPCS: 36415; 80053; 80061; 95806

== ENCOUNTER → 2024-12-27 07:57 | Outpatient (BNV) | payer OTHER, SELFPAY | PROVIDERS: PCP Internal Medicine; Visit Provider Internal Medicine | DX: G47.33 Obstructive sleep apnea (adult) (pediatric) (principal) | CPT/HCPCS: 95806 ==

== ENCOUNTER 2025-03-09 07:34 | Outpatient (REF) | payer OTHER, SELFPAY ==
[2025-03-09 08:32] LABS: Cholesterol 219 mg/dL (<200); HDL Cholesterol 31 mg/dL (>40); LDL Cholesterol Calculated 156 mg/dL (<100); Potassium 4.3 mmol/L (3.3-5.1); Triglycerides 163 mg/dL (<150)
== END 2025-03-09 07:35 | disposition home or self-care (01) ==
LOC: HO.LAB 07:34
DX: E78.00 Pure hypercholesterolemia, unspecified (principal); E87.5 Hyperkalemia
CPT/HCPCS: 36415; 80061; 84132

== ENCOUNTER 2025-03-14 08:15 | Outpatient (AMB) | payer OTHER, SELFPAY ==
--- NOTE | 2025-03-14 08:19 | A.OFFPC_ITS ---
Vital Signs 03/14/25 08:23 Height 5 ft 11 in Weight 211 lb 4 oz BMI 29.5 BP 110/78 Blood Pressure Location Lt brachial Position Sitting Pulse 85 Pulse Source Pulse Oximeter Temp 97.1 F Temp Source Temporal Artery Scan Pulse Oximetry (%) 97 Oxygen Delivery Method Room Air Intake Visit Reasons: maranda DR. Dawson/ 3 month f/u Intake Note: Patient is here today for MARANDA from Dr Dawson, HTN f/u and lab results Piano Bench Assembler Required: No Hop Picker: Not Required per policy Accompanied by: Self / Same As Patient Allergies No Known Allergies Allergy (Verified 03/14/25 08:33) Medication List - Last Reconciled 03/14/25 by Iliana Arrington PA-C lisinopril 20 mg PO DAILY paroxetine HCl 20 mg PO DAILY simvastatin 5 mg PO BEDTIME Tobacco use date assessed: 03/14/25 Dental Screening Dental Screen Date: 11/11/[address] Dawson/ 3 month f/u HPI Details 54-year-old male with past medical histo ry of hypercholesterolemia, hypertension and panic disorder last seen 11/2024 coming in for transfer of care.?In review of the notes, patient completed sleep study 12/2024 showing mild obstructive sleep apnea recommend positional therapy and avoid sleeping in the supine position. Presenting with hyperlipidemia for medication management and review. The history of hyperlipidemia dates back to 2019, with cholesterol levels between the 160s and 170s previously, currently at 156 mg/dL. Prior treatment with simvastatin was discontinued due to adverse gastrointestinal effects, primarily diarrhea and constipation. The patient's hypertension is well-managed with lisinopril. A sleep study revealed mild obstructive sleep apnea, advising positional therapy. The patient's blood sugar was recorded at 125 mg/dL in December prompting diabetic evaluation. [facility] Medical History Panic disorder Depression Surgical History History of colonoscopy Family History Mother No problems noted. Father No problems noted. Social History Housing: House Patient Tobacco Use Status: Never used Tobacco Tobacco use type: Cigarette e-Cigarette/Vaping Use: Never Used Second Hand Smoke Exposure: No service: No Current occupational status: employed Cognitive needs: No Hearing needs: No Vision needs: No Questionnaire PHQ-9 Over the last 2 weeks, how often have you been bothered by any of the following problems? 1. Little interest or pleasure in doing things: not at all 2. Feeling down, depressed, or hopeless: not at all 3. Trouble falling or staying asleep, or sleeping too much: not at all 4. Feeling tired or having little energy: not at all 5. Poor appetite or overeating: not at all 6. Feeling bad about yourself - or that you are a failure or have let yourself or your family down: not at all 7. Trouble concentrating on things, such as reading the newspaper or watching television: not at all 8. Moving or speaking so slowly that other people could have noticed. Or the opposite - being so fidgety or restless that you have been moving around a lot more than usual: not at all 9. Thoughts that you would be better off or of hurting yourself in some way: not at all Total score: 0 Depression Screening Interpretation: Negative Depression Screening Done: Yes Source: Developed by Drs. Sebastián Drake, Kimberlee Denton, Placido Moses and colleagues, with an educational christopher from [employer]. Thrive Questionnaire Date Thrive assessed: 03/14/25 I am a: Patient What is your living situation today?: I have a steady place to live Within the past 12 months, did the food you bought not last and you didn't have the money to get more?: Never true Within the past 12 months, did you worry whether your food would run out before you got money to buy more?: Never true Do you have trouble paying for medicines?: No Do you have trouble getting transportation to medical appointments?: No Do you have trouble paying your heating and electricity bill?: No Do you have trouble taking care of your child, family member or friend?: No Do you have trouble with day-to-day activities such as bathing, preparing meals, shopping, managing finances, etc.?: No Are you currently unemployed and looking for a job?: No Are you interested in more education?: No Please select the resources that you would like help with: None Currently or been in a relationship where the following occur: No concerns reported THRIVE Score: 0 AUDIT C Alcohol Use Questionnaire (AUDIT-C) 1. How often do you have a drink containing alcohol?: 2-4 times a month 2. How many drinks containing alcohol do you have on a typical day when you are drinking?: 3 or 4 3. How often do you have six or more drinks on one occasion?: Less than monthly Total Score: 4 Score Reviewed/Action Taken: Yes ANNABELLE-7 AMB Questionnaire ANNABELLE-7 Date ANNABELLE - 7 assessed: 11/11/24 Feeling nervous, anxious, or on edge: 0 = Not at all Not being able to stop or control worryin = Not at all Worrying too much about different things: 0 = Not at all Trouble relaxin = Not at all Being so restless that it is hard to sit still: 0 = Not at all Becoming easily annoyed or irritable: 0 = Not at all Feeling afraid as if something awful might happen: 0 = Not at all Total ANNABELLE-7 score (0-4 normal; 5-9 mild; 10-14 moderate; 15-21 severe): 0 Source: Developed by Drs. Sebastián Drake, Kimberlee Denton, Placido Moses and colleagues, with an educational christopher from [employer]. ANNABELLE-7 Assessment Billing ANNABELLE-7 Assessment Tool: ANNABELLE-7 Assessment [id number] Review of Systems Const Denies body aches, Denies chills, Denies fever(s), Denies headache(s) and Denies poor appetite Eyes Reports no additional complaints ENT Denies dizziness and Denies headache(s) Card Denies chest pain, Denies syncope, Denies edema, Denies irregular heart rhythm, Denies lightheadedness and Denies dyspnea Resp Denies dyspnea GI Denies abdominal pain, Denies constipation, Denies diarrhea, Denies nausea and Denies vomiting Reports no additional complaints Musc Reports no additional complaints and Denies abnormal gait Skin/Breast Reports system reviewed and no additional complaints, except as documented Neuro Denies abnormal gait, Denies dizziness, Denies syncope and Denies headache(s) Psych Reports no additional complaints Physical exam (Primary Care) Vital Signs: Last Vital Signs Temp 97.1 F 05/06/25 08:23 Pulse 85 03/14/25 08:23 BP 110/78 03/14/25 08:23 Pulse Ox 97 03/14/25 08:23 Oxygen Delivery Method Room Air 03/14/25 08:23 BMI result Body Mass Index 29.5 Tobacco/Smoking Status: Tobacco use Status Tobacco use date assessed 03/14/25 03/14/25 08:25 Patient Tobacco Use Status Never used Tobacco 03/14/25 08:25 Tobacco use type Cigarette 03/14/25 08:25 e-Cigarette/Vaping Use Never Used 03/14/25 08:25 PHQ-9: PHQ-9 Score PHQ-9: Total score 0 03/14/25 08:25 Depression Screening Interpretation: Negative Thrive Assessment: Date of Thrive Assessment Date Thrive assessed 03/14/25 03/14/25 08:25 Currently or been in a relationship where the following occur: No concerns reported Const General: cooperative, healthy appearing, comfortable and no acute distress Orientation/consciousness: patient oriented x3 HENMT Head: Yes normocephalic Ears: hearing grossly normal bilaterally General nose exam: Normal external nose present Eyes General: appearance normal, both eyes and all related structures Conjunctivae: conjunctivae normal Neck Neck: Yes full ROM and Yes no lymphadenopathy Resp Effort & Inspection: normal respiratory effort Auscultation: clear to auscultation bilaterally, no crackles, no rales, no rhonchi and no wheezes Cardio Rate: regular rate Rhythm: regular rhythm Skin General skin exam: no rashes or lesions noted Neuro General: patient oriented x3 Gait exam (Neuro): Normal gait present Extrem General: Yes normal to inspection, Yes full ROM and No edema Psych Affect: normal affect Attitude: cooperative Insight: Good insight present (Psych) Judgement: Good judgement present (Psych) Coding Level of Care Code Est Pt Level 3 (69224) Diagnoses Hypertension I10 Hypercholesteremia E78.00 Hypersomnolence G47.10 Panic disorder F41.0 Hyperkalemia E87.5 Blood glucose elevated R73.9 Additional Codes ANNABELLE-7 Assessment Billing - ANNABELLE-7 Assessment Tool: ANNABELLE-7 Assessment [id number] ([id number]) Assessment & Plan Assessment & Plan (1) Hypertension: Code(s): I10 - Essential (primary) hypertension Category: Medical Plan: Continue on current blood pressure medication. Avoid salt intake and encourage healthy diet and regular exercise. Blood pressure at goal today continue to monitor. (2) Hypercholesteremia: Code(s): E78.00 - Pure hypercholesterolemia, unspecified Category: Medical Plan: Avoid foods that are high in cholesterol such as red meat, fried foods, eggs and baked goods. Triglyceride goal of less than 150 and LDL goal of less than 130. Patient discontinued simvastatin as the drug was causing side effects. Plan to initiate atorvastatin of the low dose and repeat blood work in 3 months. If patient does develop symptoms to reach out to the office so adjustment can be made. Follow up and repeat blood work in 3 months (3) Hypersomnolence: Code(s): G47.10 - Hypersomnia, unspecified Category: Medical Plan: Patient complaining of hypersomnolence and has been told he snores and gasps for air at night. Sleep study revealed mild obstructive sleep apnea recommending conservative management with weight loss and positional therapy. This was discussed with patient who agrees to continue to monitor symptoms and if worsens or persists to reach out to the office and can consider referral to sleep Me janes. (4) Panic disorder: Code(s): F41.0 - Panic disorder [episodic paroxysmal anxiety] Category: Medical Plan: Feels good on his paroxetine at this time. (5) Hyperkalemia: Code(s): E87.5 - Hyperkalemia Category: Medical Plan: Resolved (6) Blood glucose elevated: Code(s): R73.9 - Hyperglycemia, unspecified Category: Medical Plan: Patient has elevated blood glucose level on last blood work in December. Plan to obtain A1c for further evaluation Plan This note was constructed using voice recognition software. While every effort has been made to ensure accuracy and design assistant, still areas may have been included sometimes these areas may affect the content or meeting of the given symptoms. Total time spent caring for the patient today was 30 minutes. This includes time spent before the visit reviewing the chart, time spent during the visit, and time spent after the visit and documentation. Orders: Orders Lipid Panel 3 Months E78.00 - Pure hypercholesterolemia, unspecified Hemoglobin A1c 3 Months R73.9 - Hyperglycemia, unspecified Medications: New atorvastatin 10 mg PO DAILY 30 tabs 1RF Discontinued simvastatin Discontinued Reason: Patient no longer taking 5 mg PO BEDTIME 90 tabs 0RF
[2025-03-14 08:23] VITALS: BP 110/78; PULSE 85; TEMP 36.2; O2SAT 97; BMI 29.5
== END 2025-03-14 08:48 | disposition home or self-care (01) ==
LOC: HO.HMCH 08:16
DX: I10 Essential (primary) hypertension (principal); E78.00 Pure hypercholesterolemia, unspecified; G47.10 Hypersomnia, unspecified; F41.0 Panic disorder [episodic paroxysmal anxiety]; E87.5 Hyperkalemia; R73.9 Hyperglycemia, unspecified

== ENCOUNTER → 2025-03-14 08:15 | Outpatient (BNVA) | payer OTHER, SELFPAY | DX: I10 Essential (primary) hypertension (principal); E78.00 Pure hypercholesterolemia, unspecified; G47.10 Hypersomnia, unspecified; F41.0 Panic disorder [episodic paroxysmal anxiety]; E87.5 Hyperkalemia; R73.9 Hyperglycemia, unspecified | CPT/HCPCS: 96127 ==

== ENCOUNTER 2025-07-22 07:25 | Outpatient (REF) | payer OTHER, SELFPAY ==
--- OUTSIDE RECORDS SUMMARY | 2024-01-27 09:00 | XMS_ITS ---
Author Organization [facility] Address [address] [place] [id number] Care Team Providers Care Pediatric Pathologist Name Role Phone Shubham Dawson MD Primary Care Provider Humberto Bynum Jr Unavailable REASON FOR VISIT screening,hx polyps Encounters Encounter Location Date Provider Diagnosis [facility] [place] Out[facility] [address] [place] [phone] 01/27/2024 Humberto Boggs Jr Encounter for screening colonoscopy Z12.11 and Colon polyps K63.5 Assessments Encounter Date Diagnosis (ICD Code) Assessment Notes Treatment Notes Treatment Clinical Notes Section Notes 01/27/2024 Encounter for screening colonoscopy (ICD-10 - Z12.11) 01/27/2024 Colon polyps (ICD-10 - K63.5) Plan Of Treatment No Information Progress Notes * ODALYSRICKEY RuffinDOB:1970 (54 yo M)Acc No.[id number]:01/27/2024 COLON WITH MAC Patient: RICKEY GUERIN Provider: Steven Boggs MD :1970 A ge:53 Y S ex:Male Date:01/27/2024 [address] [place] Pcp:Shubham Dawson MD Subjective: * Chief Complaints: * 1 . Screening,hx polyps. * Medical History: Objective: * Vitals: Assessment: * Assessment: 1. E ncounter for screening colonoscopy - Z12.11 (Primary) 2 . C olon polyps - K63.5 Plan: * Treatment: * Procedure Codes: 4 5385 LESION REMOVAL COLONOSCOPY, 26192 COLONOSCOPY AND BIOPSY, Modifiers: 59 * * The named appointment provid er may or may not be the originator of this progress note, and it is not deemed complete until electronically signed by the appointment provider. Sign off status: Pending * Provider: Steven Boggs MD Date: 0 01/27/2024 Generated for Cedrick garcia/Hilda/Yaneth on: 0 07/22/2025 07:28 AM EDT
--- OUTSIDE RECORDS SUMMARY | 2025-07-22 07:29 | XMS_ITS | Patient Health Record ---
Author Organization [facility] Address [address] [place] [address] Care Team Providers Care Emc Storage Architect Name Role Phone Shubham Dawson MD Primary Care Provider Humberto Bynum Jr Unavailable Allergies No Known Allergies Reason For Referral No Information Medications Medication SIG (Take, Route, Frequency, Duration) Notes Start Date End Date Status MiraLax (colon prep) 17 GM/SCOOP mixed with Gatorade or Crystal Light Orally begin at 5:00 p.m. the day before the procedure for 1 day 12/25/2023 Active PARoxetine HCl 20 MG TK 1 T PO QD Oral for 90 Active Immunizations Vaccine Route Administration Date Status Comme nts Influenza Unknown 08/21/2020 Administered Influenza Unknown 12/25/2023 Refused Social History Tobacco Use: Social History Observation Description Date Details (start date - stop date) Never Smoker NA - NA Tobacco Use/Smoking Question Answer Notes Patient is [...] Never (0 point) Points 4 Interpretation Positive Problems Problem Type SNOMED Code ICD Code Onset Dates Problem Status W/U Status Risk Notes Problem 348734988 Colon cancer screening (Z12.11) Active confirmed Problem 634362266 Personal history of colonic polyps (Z86.010) Active confirmed Problem [id number] Encounter for other preprocedural examination (Z01.818) Active confirmed Plan Of Treatment Future Test Test Name Order Date COLONOSCOPY 08/30/2020 COLONOSCOPY 12/25/2023 Insurance Providers Payer Name Payer Address Payer Phone Subscriber Number Group Number Insured Name Patient Relationship to Insured Coverage Start Date Coverage End Date [facility] [address] [facility] [place] [phone] [id number] RICKEY SUMMERS Self - patient is the insured Medical (General) History Medical History History ICD Code Depression Colon polyps, colonoscopy 09/28, multipl e adenomas, three-year followup Surgical History Surgery Date(Month/Year)
[2025-07-22 08:16] LABS: Hemoglobin A1C 166.7638 umol/L; Total Hemoglobin (HGBA1C) 4089.0452 umol/L
[2025-07-22 08:35] LABS: Cholesterol 237 mg/dL (<200); HDL Cholesterol 36 mg/dL (>40); Triglycerides 212 mg/dL (<150)
== END 2025-07-22 07:26 | disposition home or self-care (01) ==
LOC: HO.LAB 07:25
DX: E78.00 Pure hypercholesterolemia, unspecified (principal); R73.9 Hyperglycemia, unspecified
CPT/HCPCS: 36415; 80061; 83036

== ENCOUNTER 2025-07-25 08:24 | Outpatient (AMB) | payer OTHER, SELFPAY ==
--- OUTSIDE RECORDS SUMMARY | 2024-01-27 09:00 | XMS_ITS ---
Author Organization [facility] Address [address] [place] [id number] Care Team Providers Care Welding Technician Name Role Phone Shubham Dawson MD Primary Care Provider Humberto Bynum Jr Unavailable REASON FOR VISIT screening,hx polyps Encounters Encounter Location Date Provider Diagnosis [facility] [place] [facility] [address] [place] [phone] 01/27/2024 Humberto Boggs Jr Encounter for screening colonoscopy Z12.11 and Colon polyps K63.5 Assessments Encounter Date Diagnosis (ICD Code) Assessment Notes Treatment Notes Treatment Clinical Notes Section Notes 01/27/2024 Encounter for screening colonoscopy (ICD-10 - Z12.11) 01/27/2024 Colon polyps (ICD-10 - K63.5) Plan Of Treatment No Information Progress Notes * ODALYSRICKEY RuffinDOB:1970 (54 yo M)Acc No.[id number]:01/27/2024 COLON WITH MAC Patient: RICKEY GUERIN Provider: Steven Boggs MD :1970 A ge:53 Y S ex:Male Date:01/27/2024 [facility] [id number] Pcp:Shubham Dawson MD Subjective: * Chief Complaints: * 1 . Screening,hx polyps. * Medical History: Objective: * Vitals: Assessment: * Assessment: 1. E ncounter for screening colonoscopy - Z12.11 (Primary) 2 . C olon polyps - K63.5 Plan: * Treatment: * Procedure Codes: 4 5385 LESION REMOVAL COLONOSCOPY, 79443 COLONOSCOPY AND BIOPSY, Modifiers: 59 * * The named appointment provid er may or may not be the originator of this progress note, and it is not deemed complete until electronically signed by the appointment provider. Sign off status: Pending * Provider: Steven Boggs MD Date: 0 01/27/2024 Generated for Cedrick garcia/Hilda/Yaneth on: 0 07/25/2025 09:54 AM EDT
--- NOTE | 2025-07-25 08:27 | MHC.PC.OV ---
Vital Signs 07/25/25 08:28 Height 5 ft 11 in Weight 212 lb BMI 29.6 BP 130/78 Blood Pressure Location Lt brachial Position Sitting Pulse 81 Pulse Source Pulse Oximeter Temp 96.9 F Temp Source Temporal Artery Scan Pulse Oximetry (%) 95 Oxygen Delivery Method Room Air Intake Visit Reasons: annual exam Intake Note: Patient is here today for a physical. Electric Serviceman Required: No Mechanical Engineering Lecturer: Not Required per policy Accompanied by: Self / Same As Patient Allergies No Known Allergies Allergy (Verified 07/25/25 08:48) Medication List - Last Reconciled 07/25/25 by Iliana Arrington PA-C atorvastatin 10 mg PO DAILY lisinopril 20 mg PO DAILY paroxetine HCl 20 mg PO DAILY Tobacco use date assessed: 07/25/25 Dental Screening Dental Screen Date: 11/11/24 HPI annual exam HPI Details 54-year-old male with past medical history of hypercholesterolemia, hypertension and panic disorder last seen 03/2025 coming in for annual exam. Presenting with an annual wellness examination. Hypertension Managed with lisinopril 20 mg daily, current blood pressure is 130/78 mmHg, improved from last year. Hyperlipidemia Non-adherence to atorvastatin noted, triglycerides elevated to 212 mg/dL, LDL at 159 mg/dL, plans to restart atorvastatin. A1c at 5.9%, dietary changes advised to prevent diabetes progression. PSA: ordered today Colonoscopy: 01/2024 vaccines: WVD [facility] Medical History Panic disorder Depression Surgical History History of colonoscopy Family History Mother No problems noted. Father No problems noted. Social History Housing: House Alcohol intake: current Alcohol intake frequency: a few times a week Patient Tobacco Use Status: Never used Tobacco Tobacco use type: Cigarette e-Cigarette/Vaping Use: Never Used Second Hand Smoke Exposure: No service: No Current occupational status: employed Cognitive needs: No Hearing needs: No Vision needs: No Questionnaire Thrive Questionnaire Date Thrive assessed: 03/07/25 I am a: Patient What is your living situation today?: I have a steady place to live Within the past 12 months, did the food you bought not last and you didn't have the money to get more?: Never true Within the past 12 months, did you worry whether your food would run out before you got money to buy more?: Never true Do you have trouble paying for medicines?: No Do you have trouble getting transportation to medical appointments?: No Do you have trouble paying your heating and electricity bill?: No Do you have trouble taking care of your child, family member or friend?: No Do you have trouble with day-to-day activities such as bathing, preparing meals, shopping, managing finances, etc.?: No Are you currently unemployed and looking for a job?: No Are you interested in more education?: No Please select the resources that you would like help with: None Currently or been in a relationship where the following occur: No concerns reported THRIVE Score: 0 ANNABELLE-7 AMB Questionnaire ANNABELLE-7 Date ANNABELLE - 7 assessed: 11/11/24 Source: Developed by Drs. Sebastián Drake, Kimberlee Denton, Placido Moses and colleagues, with an educational christopher from [employer]. Review of Systems Const Denies body aches, Denies fatigue, Denies fever(s), Denies frequent falls, Denies headache(s) and Denies weakness Eyes Reports no additional complaints and Denies change in vision ENT Denies dizziness, Denies facial pain, Denies headache(s) and Denies nasal congestion Card Denies chest pain, Denies syncope, Denies irregular heart rhythm, Denies leg edema, Denies lightheadedness and Denies dyspnea Resp Denies cough and Denies dyspnea GI Denies abdominal pain, Denies constipation, Denies dyspepsia, Denies diarrhea, Denies nausea and Denies vomiting Denies dysuria, Denies urinary frequency, Denies urinary hesitancy and Denies urinary urgency Musc Denies back pain and Denies myalgias Skin/Breast Reports system reviewed and no additional complaints, except as documented Neuro Denies dizziness, Denies syncope, Denies frequent falls, Denies headache(s) and Denies weakness Psych Reports no additional complaints Endo Denies fatigue Physical exam (Primary Care) Vital Signs: Last Vital Signs Temp 96.9 F 07/25/25 08:28 Pulse 81 07/25/25 08:28 BP 130/78 07/25/25 08:28 Pulse Ox 95 07/25/25 08:28 Oxygen Delivery Method Room Air 07/25/25 08:28 BMI result Body Mass Index 29.6 Tobacco/Smoking Status: Tobacco use Status Tobacco use date assessed 07/25/25 07/25/25 08:33 Patient Tobacco Use Status Never used Tobacco 07/25/25 08:33 Tobacco use type Cigarette 07/25/25 08:33 e-Cigarette/Vaping Use Never Used 07/25/25 08:33 Thrive Assessment: Date of Thrive Assessment Date Thrive assessed 03/07/25 07/25/25 08:33 Currently or been in a relationship where the following occur: No concerns reported Const General: cooperative, healthy appearing, comfortable and no acute distress Orientation/consciousness: patient oriented x3 HENMT Head: Yes normocephalic Ears: hearing grossly normal bilaterally, external ears normal, TM's normal bilaterally and EAC's normal General nose exam: Normal external nose present Face and sinus: Yes normal facial exam and Yes sinuses nontender Mouth: Normal oral and palatal mucosa present and tongue normal Throat: Yes posterior oropharynx normal Eyes General: appearance normal, both eyes and all related structures Conjunctivae: conjunctivae normal Pupils: Equal, round and reactive pupils present EOM: EOMs intact bilaterally and No Nystagmus present Neck Neck: Yes normal visual inspection, Yes full ROM and Yes no lymphadenopathy Chest Chest palpation & inspection: normal inspection of the chest Resp Effort & Inspection: normal respiratory effort Auscultation: clear to auscultation bilaterally, no crackles, no rales, no rhonchi, no wheezes and breath sounds present Cardio Rate: regular rate Rhythm: regular rhythm Peripheral pulses: radial pulses present and dorsalis pedis present GI Inspection: Yes normal to inspection and No Abdominal wall edema Palpation (GI): Soft to palpation, not firm and nontender Auscultation: normal bowel sounds Rectal Exam - Male: Yes deferred General: Yes no CVA tenderness Back/Spine/Pelvis Back: no CVA tenderness Skin General skin exam: no rashes or lesions noted Full body images:  1. raised Nevi with smooth borders without scabbing, crusting or bleeding. Neuro General: patient oriented x3 Cranial nerves: Yes Equal, round and reactive pupils present, Yes Midline tongue present, Yes Ability to bilaterally elevate shoulders present and No Nystagmus present Gait exam (Neuro): Normal gait present Extrem General: Yes normal to inspection, Yes full ROM, No no pedal edema and No edema Psych Speech and movement: Normal speech and movement present Affect: normal affect Insight: Good insight present (Psych) Judgement: Good judgement present (Psych) Coding Level of Care Code Est Pt Prev Care 40-64y(19149) Diagnoses Annual physical exam Z00.00 Hypertension I10 Hypercholesteremia E78.00 Hypersomnolence G47.10 Panic disorder F41.0 Prediabetes R73.03 Atypical nevi D22.9 Assessment & Plan Assessment & Plan (1) Annual physical exam: Code(s): Z00.00 - Encounter for general adult medical examination without abnormal findings Category: Medical Plan: Patient is up-to-date on all recommended routine screenings and vaccinations for his age. He is due for his PSA which was ordered today. All other blood work has been reviewed with the patient today. Healthy diet and regular exercise is encouraged. Plan to follow up in 6 months or sooner as needed (2) Hypertension: Code(s): I10 - Essential (primary) hypertension Category: Medical Plan: Continue on current blood pressure medication. Avoid salt intake and encourage healthy diet and regular exercise. Blood pressure at goal today continue to monitor. (3) Hypercholesteremia: Code(s): E78.00 - Pure hypercholesterolemia, unspecified Category: Medical Plan: Avoid foods that are high in cholesterol such as red meat, fried foods, eggs and baked goods. Triglyceride goal of less than 150 and LDL goal of less than 130. Patient discontinued simvastatin as the drug was causing side effects and atorvastatin was started at last visit. Patient admits to nonadherence to the medication. Plan to restart atorvastatin as LDL is still elevated and retest in 3 months. (4) Hypersomnolence: Code(s): G47.10 - Hypersomnia, unspecified Category: Medical Plan: Patient complaining of hypersomnolence and has been told he snores and gasps for air at night. Sleep study revealed mild obstructive sleep apnea recommending conservative management with weight loss and positional therapy. This was discussed with patient who agrees to continue to monitor symptoms and if worsens or persists to reach out to the office and can consider referral to sleep Medicine. (5) Panic disorder: Code(s): F41.0 - Panic disorder [episodic paroxysmal anxiety] Category: Medical Plan: Feels good on his paroxetine at this time. (6) Prediabetes: Comment: 06/2025 5.9% Code(s): R73.03 - Prediabetes Category: Medical Plan: Most recent A1c is elevated at 5.9% but nondiagnostic for diabetes. Decrease the amount of carbohydrates such as pasta, bread, rice, and potatoes and limit the amount of sweets. Although fruits are generally healthy they should be eaten in moderation as they are still high in sugar. (7) Atypical nevi: Code(s): D22.9 - Melanocytic nevi, unspecified Category: Medical Plan: Patient has a mole on the left side of the neck that does not appear to be concerning however he does state it has been growing. Referral was placed to Dermatology today Plan During the visit, we discussed the management of hypertension, hyperlipidemia, and prediabetes. I advised the patient to restart atorvastatin and implement dietary changes to manage lipid levels and prevent diabetes progression. We also reviewed the importance of monitoring blood pressure and A1c levels. A dermatology referral was recommended for a changing mole, and the patient was informed about the management of mild sleep apnea without CPAP. Follow-up appointments and blood work were scheduled to monitor progress. This note was constructed using voice recognition software. While every effort has been made to ensure accuracy and validation leader, still areas may have been included sometimes these areas may affect the content or meeting of the given symptoms. Total time spent caring for the patient today was 30 minutes. This includes time spent before the visit reviewing the chart, time spent during the visit, and time spent after the visit and documentation. Patient was informed and verbally consented to the use of an ambient scribe for clinic note documentation during this visit. Orders: Orders PSA, Ultra Sensitive Today Z12.5 - Encounter for screening for malignant neoplasm of prostate Lipid Panel 3 Months E78.00 - Pure hypercholesterolemia, unspecified Hemoglobin A1c Today R73.03 - Prediabetes Comprehensive Met. Panel Today Z00.00 - Encounter for general adult medical examination without abnormal findings Referrals Dermatology Referral D22.9 - Melanocytic nevi, unspecified Medications: Refilled atorvastatin 10 mg PO DAILY 90 tabs 1RF
[2025-07-25 08:28] VITALS: BP 130/78; PULSE 81; TEMP 36.1; O2SAT 95; BMI 29.6
--- OUTSIDE RECORDS SUMMARY | 2025-07-25 09:54 | XMS_ITS | Patient Health Record ---
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 Phone Shubham Dawson MD [...] Problem Status W/U Status Risk Notes Problem [id number] Colon cancer screening (Z12.11) Active confirmed Problem [id number] Personal history of colonic polyps (Z86.010) Active confirmed Problem [id number] Encounter for other preprocedural examination (Z01.818) Active confirmed Plan Of Treatment Future Test Test Name Order Date COLONOSCOPY 08/30/2020 COLONOSCOPY 12/25/2023 Insurance Providers Payer Name Payer Address Payer Phone Subscriber Number Group Number Insured Name Patient Relationship to Insured Coverage Start Date Coverage End Date [facility] [address] [facility] [place] [phone] [id number] RICKEY SUMMERS Self - patient is the insured Medical (General) History Medical History History ICD Code Depression Colon polyps, colonoscopy 09/28, multipl e adenomas, three-year followup Surgical History Surgery Date(Month/Year)
== END 2025-07-25 09:23 | disposition home or self-care (01) ==
LOC: HO.HMCH 08:24
DX: Z00.00 Encounter for general adult medical examination without abnormal findings (principal); I10 Essential (primary) hypertension; E78.00 Pure hypercholesterolemia, unspecified; G47.10 Hypersomnia, unspecified; F41.0 Panic disorder [episodic paroxysmal anxiety]; R73.03 Prediabetes; D22.9 Melanocytic nevi, unspecified